=== PATIENT | female | born 1950 | race Caucasian/White ===

== ENCOUNTER → 2017-11-01 09:29 | Outpatient (CLI) | payer MEDICARE, OTHER, SELFPAY | PROVIDERS: PCP Emergency Medicine; Visit Provider Orthopaedic Surgery | DX: M76.31 Iliotibial band syndrome, right leg (principal); M70.61 Trochanteric bursitis, right hip | CPT/HCPCS: 20610; 99213; J1040 ==

== ENCOUNTER 2018-06-13 01:33 | Outpatient (CLI) | payer MEDICARE, OTHER, SELFPAY ==
--- NOTE | 2018-06-13 10:20 | DI.MRI_ITS ---
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 T 2 sagittal, T 1 sagittal, T 1 STIR sagittal, T 1 axial, T 2 axial and T 2 axial MSMA pulse sequences were performed. The bony signal is intact. At L 1 - 2 there is no evidence of a disc herniation. Mild facet joint degenerative changes are noted and there is no evidence of spinal stenosis. At L 2 - 3 there is a small disc bulge and no evidence of a winter herniation. There are mild to moderate facet joint degenerative changes and no evidence of spinal stenosis. At L 3 - 4 a disc bulge is identified. There are moderately severe facet joint degenerative changes and no evidence of significant spinal stenosis. At L 4 - 5 a subligamentous disc protrusion is identified. There is severe facet joint DJD and resultant central spinal canal stenosis and moderate bilateral foraminal stenosis. At L 5 - S 1 a small disc bulge is demonstrated. There are facet joint degenerative changes most severe on the left side where moderate foraminal stenosis is apparent. There is no intrinsic abnormality involving the lower dorsal cord, conus or filum terminale. SUMMARY: Findings consistent with degenerative disc disease and DJD and spinal stenosis, findings most marked at L 4 - 5. Please see the above discussion.
== END 2018-06-13 01:53 ==
PROVIDERS: PCP Emergency Medicine; Visit Provider Emergency Medicine
DX: M54.32 Sciatica, left side (principal); M53.87 Other specified dorsopathies, lumbosacral region; M48.07 Spinal stenosis, lumbosacral region; M51.17 Intervertebral disc disorders with radiculopathy, lumbosacral region
CPT/HCPCS: 72148

== ENCOUNTER 2018-08-17 12:00 | Outpatient (CLI) | payer MEDICARE, OTHER, SELFPAY ==
--- NOTE | 2018-08-17 06:00 | DI.RAD_ITS ---
SYMPTOM/DIAGNOSIS: LUMBAR RADICULOPATHY, LUMBAR EPIDURAL STEROID INJECTION C-ARM: Fluoroscopy Time: 35.25 seconds Fluoroscopy was utilized by Dr. Finney during the performance of a lumbar epidural steroid injection. Please refer to the procedure report for complete details.
[2018-08-17 12:08] VITALS: BP 139/84; PULSE 62; RESP 18; TEMP 36.6; O2SAT 100
[2018-08-17] MEDS: methylPREDNISolone ACETATE 40 MG/ML VIAL IJ (12:35)
[2018-08-17] MEDS: Omnipaque 240 MG/ML 50 ML BTL IJ (12:35)
--- NOTE | 2018-08-17 12:37 | PDOC.PAIN ---
Pain Clinic Procedure Note Current Active Problems Problem Status Onset Lumbosacral radiculitis Acute Lumbar Epidural Steroid Injection Procedure Note COMMENTS: I did review her note from Ms. Hines in our clinic and the most recent lumbar spine MRI. ISAIAH ARZATE has been referred to the [facility] for lumbar epidural steroid injection. The patient was greeted by the nurse who verified patients name and . Patient was then taken to the fluoroscopy suite. The patient was interviewed and the medial record reviewed. There were no medical, pharmacologic, radiographic, or other structural contraindications to attempting fluoroscopically guided lumbar epidural steroid injection. Risks and expected side effects as well as potential benefits of the procedure were reviewed and voiced concerns expressed. The patient consent form was signed and witnessed. Standard patient time-out procedure was performed. The patient was placed in the prone position on the fluoroscopy table and automated blood pressure cuff and pulse oximeter applied. The skin entry point for entering/approaching the epidural space at the right side of the L4-L5 interspace and marked. Following thorough chlorhexadine preparation of the skin and draping and 1% lidocaine infiltration of the skin entry point and subcutaneous tissues, a 18 gauge Touhy needle was placed under fluoroscopic guidance and with loss of resistance technique into the epidural space. Needle tip placement and depth were aided and confirmed by fluoroscopy. There was no paresthesia or return of blood or CSF through the needle. 1 cc's of Omnipaque 240 was injected with clear epidural spread confirmed with fluoroscopy. 80mg depomedrol was injected. There was not any unusual discomfort expressed by ISAIAH ARZATE. Patient's vital signs were stable throughout the procedure and were as recorded in nursing records. Follow up plans and appointments were discussed with patient. Post procedure instruction was given as documented in nursing records and having met discharge criteria and was discharged from the [facility]. COMMENTS: If this procedure is helpful, it can be completed up to 3 times per 12 months.
[2018-08-17 12:39] VITALS: BP 154/99; PULSE 70; RESP 16; O2SAT 100
== END 2018-08-17 12:20 ==
PROVIDERS: PCP Emergency Medicine; Visit Provider Preventive Medicine Occupational Medicine
DX: M54.17 Radiculopathy, lumbosacral region (principal)
CPT/HCPCS: 62323; 72100; J1030; Q9967

== ENCOUNTER 2019-01-16 11:32 | Outpatient (CLI) | payer MEDICARE, OTHER, SELFPAY ==
--- NOTE | 2019-01-16 06:00 | DI.RAD_ITS ---
EXAM: XR PAIN CLINIC LUMBAR SP 2V CLINICAL HISTORY: Dx: Lumbar Radiculopathy. TECHNIQUE: Fluoroscopy was provided for the referring physician for guidance with performing injecti on procedure. COMPARISON: No exams were available for comparison FINDINGS: Please see procedure note for details.
--- NOTE | 2019-01-16 11:01 | PDOC.PAIN_ITS ---
Pain Clinic Procedure Note Procedure Note Procedure Note: LUMBAR INTERLAMINAR EPIDURAL STERIOID INJECTION PROCEDURE NOTE Pre-operative diagnosis: lumbosacral radiculopathy Post-operative diagnosis: same GEORGE ARZATE has been referred to the [facility] for a lumbar epidural steroid injection by Kathe Hines APRN in our pain clinic. patient responded well to previous LESI in 08/[address] Finney. She has significant pain relief from August till late December,. The patient complains of low back pain with pain radiating down the bilateral legs, right more than left. GEORGE was greeted by the nurse who verified patients name and . The patient was then taken to the fluoroscopy suite. GEORGE was interviewed and the medical record reviewed. There were no medical, pharmacologic, radiographic, or other structural contraindications to attempting fluoroscopically guided lumbar epidural steroid injection. Risks and potential side effects, as well as potential benefits of the procedure were reviewed with Ms George Arzate. Her voiced concerns were addressed. After I was assured that informed consent was obtained, the patient consent form was signed. Standard time-out procedure was performed. GEORGE was placed in the prone position on the fluoroscopy table and automated blood pressure cuff and pulse oximeter applied. The skin entry point for entering/approaching the L5-1 epidural space for the lumbar epidural steroid injection was marked. Following thorough chlorhexadine preparation of the skin and draping and 1% lidocaine infiltration of the skin entry point and subcutaneous tissues, an 18 gauge Touhy needle was placed and advanced under f luoroscopic guidance and with loss of resistance technique into the L5-S1 epidural space. Needle tip placement and depth were aided and confirmed by fluoroscopy. There was no paresthesia or return of blood or CSF through the needle. 1 cc's of Omnipaque 240 was injected (49 cc's was wasted) with clear epidural spread confirmed with fluoroscopy. 80 mg of Depomedrol (80 mg/cc) was injected (none was wasted). This was followed by 0.5cc of preservative free 1% lidocaine and 1 cc of preservative-free normal saline to flush the steroid out of the needle. There was not any unusual discomfort expressed by GEORGE. GEORGE's vital signs were stable throughout the procedure and were as recorded in nursing records. Follow up plans and appointments were discussed with GEORGE . The patient is set to follow up with Kathe Bloom on prn basis. Post procedure instruction was given as documented in nursing records and having met discharge criteria he was discharged from the [facility]. Comments: If this procedure is successful in helping with pain and improving her function, it can be completed a maximum of 3 times every 12 months. I personally performed this entire procedure. Elias Hardin MD ABPN-subspecialty board certification in Pain Medicine Attending Physician - Pain Management
[2019-01-16 11:40] VITALS: BP 146/85; PULSE 73; RESP 16; TEMP 36.1; O2SAT 100
[2019-01-16 13:08] VITALS: BP 148/91; PULSE 70; RESP 14; O2SAT 100
[2019-01-16] MEDS: Omnipaque 240 MG/ML 50 ML BTL IJ (13:09)
[2019-01-16] MEDS: methylPREDNISolone ACETATE 80 MG/ML VIAL IM (13:10)
== END 2019-01-16 11:52 ==
PROVIDERS: PCP Emergency Medicine; Visit Provider Internal Medicine
DX: M54.17 Radiculopathy, lumbosacral region (principal)
CPT/HCPCS: 62323; 72100; J1040; Q9967

== ENCOUNTER 2019-01-17 10:48 | Outpatient (CLI) | payer MEDICARE, OTHER, SELFPAY ==
--- NOTE | 2019-01-17 10:16 | DI.RAD_ITS ---
EXAM: XR KNEE LT 3V AP,LAT,MARCIE CLINICAL HISTORY: knee pain TECHNIQUE: The study was performed according to the usual protocol. COMPARISON: LEFT KNEE 3 VIEW COMPLETE from 10/29/2013 FINDINGS: Four views were obtained. There is mild narrowing of the medial tibiofemoral cartilaginous joint spa ce with slight associated periarticular osteophyte formation. There is slight marginal osteophyte fo rmation also seen at the medial patellofemoral joint with slight narrowing of the medial patellofemor al cartilaginous joint space. There is chondrocalcinosis of the knee. No other focal abnormality se en. IMPRESSION: Degenerative changes predominately involving medial tibiofemoral joint and medial patellofemoral.
== END 2019-01-17 11:08 ==
PROVIDERS: PCP Emergency Medicine; Visit Provider Student in an Organized Health Care Education/Training Program
DX: M25.562 Pain in left knee (principal); M17.12 Unilateral primary osteoarthritis, left knee; M70.52 Other bursitis of knee, left knee
CPT/HCPCS: 73562; 99203; 99214

== ENCOUNTER 2019-07-26 07:54 | Outpatient (CLI) | payer MEDICARE, OTHER, SELFPAY ==
--- NOTE | 2019-07-26 06:00 | DI.RAD_ITS ---
EXAM: XR PAIN CLINIC LUMBAR SP 2V CLINICAL HISTORY: Dx:Lumbar Radiculopathy, epidural steroid injection TECHNIQUE: 2D and realtime digital imaging was performed. Fluoroscopy was provided in the OR COMPARISON: No exams were available for comparison FINDINGS: C-arm fluoroscopy was utilized by Dr. Finney during apparent epidural injection. Hard copy shows injec tion at the L4 level in the posterior midline. Please see Dr. Finney's procedure note. Fluoro time 20.3 seconds. RADIATION DOSE DELIVERED: Total DLP
[2019-07-26 08:01] VITALS: BP 134/86; PULSE 73; RESP 16; TEMP 36.7; O2SAT 97
--- NOTE | 2019-07-26 08:43 | PDOC.PAIN ---
Pain Clinic Procedure Note Procedure Note Procedure Note: Lumbar Epidural Steroid Injection Procedure Note COMMENTS: She has done exceedingly well with the first 2 lumbar epidural steroid injections over the past 11 months DX: Lumbosacral radiculopathy ISAIAH ARZATE has been referred to the [facility] for lumbar epidural steroid injection. The patient was greeted by the nurse who verified patients name and . Patient was then taken to the fluoroscopy suite. The patient was interviewed and the medial record reviewed. There were no medical, pharmacologic, radiographic, or other structural contraindications to attempting fluoroscopically guided lumbar epidural steroid injection. Risks and expected side effects as well as potential benefits of the procedure were reviewed and voiced concerns expressed. The patient consent form was signed and witnessed. Standard patient time-out procedure was performed. The patient was placed in the prone position on the fluoroscopy table and automated blood pressure cuff and pulse oximeter applied. The skin entry point for entering/approaching the epidural space at L4-L5 and marked. Following thorough chlorhexadine preparation of the skin and draping and 1% lidocaine infiltration of the skin entry point and subcutaneous tissues, a 18 gauge Touhy needle was placed under fluoroscopic guidance and with loss of resistance technique into the epidural space. Needle tip placement and depth were aided and confirmed by fluoroscopy. There was no paresthesia or return of blood or CSF through the needle. 1 cc's of Omnipaque 240 was injected with clear epidural spread confirmed with fluoroscopy. 80mg depomedrol was injected. There was not any unusual discomfort expressed by ISAIAH ARZATE. Patient's vital signs were stable throughout the procedure and were as recorded in nursing records. Follow up plans and appointments were discussed with patient. Post procedure instruction was given as documented in nursing records and having met discharge criteria and was discharged from the [facility]. COMMENTS: If this procedure is helpful, it can be completed up to 3 times per 12 months.
[2019-07-26 08:45] VITALS: BP 130/83; PULSE 69; RESP 14; O2SAT 100
[2019-07-26] MEDS: Omnipaque 240 MG/ML 50 ML BTL IJ (08:55)
[2019-07-26] MEDS: methylPREDNISolone ACETATE 40 MG/ML VIAL IJ (08:55)
== END 2019-07-26 08:14 ==
PROVIDERS: PCP Emergency Medicine; Visit Provider Preventive Medicine Occupational Medicine
DX: M54.17 Radiculopathy, lumbosacral region (principal)
CPT/HCPCS: 62323; 72100; J1030; Q9967

== ENCOUNTER → 2019-08-15 09:11 | Outpatient (BNVA) | payer MEDICARE, OTHER, SELFPAY | PROVIDERS: PCP Emergency Medicine; Referring Provider Emergency Medicine; Visit Provider Student in an Organized Health Care Education/Training Program | DX: M25.562 Pain in left knee (principal); M23.92 Unspecified internal derangement of left knee; X50.1XXA Overexertion from prolonged static or awkward postures, initial encounter | CPT/HCPCS: 99214 ==

== ENCOUNTER 2019-08-22 01:01 | Outpatient (CLI) | payer MEDICARE, OTHER, SELFPAY ==
--- NOTE | 2019-08-22 07:00 | DI.MRI_ITS ---
EXAM: MR LOWER JOINT LT WO CLINICAL HISTORY: Concern for acute lateral meniscus injury,INTERNAL DERANGEMENT, LT KNEE. TECHNIQUE: Multiplanar multisequence MRI was performed. COMPARISON: CR XR KNEE LT 3V AP,LAT,MARCIE from 01/17/2019 FINDINGS: BONES: There is mild marrow edema seen in the lateral aspect of the lateral femoral condyle. No evid ence of an occult fracture or avascular necrosis. JOINTS: There is mild thinning of the articular cartilage over the patella. Mild subchondral edema i s seen. Articular cartilage is otherwise well maintained. No effusion is present. TENDONS: Extensor mechanism: Unremarkable. Medial retinaculum: Unremarkable. Lateral retinaculum: Unremarkable. Popliteus: There is thickening of the popliteus tendon near its insertion site at the lateral femoral condyle. There is fluid surrounding the tendon distally. The findings for suspicious for tear. Th ere may be a full-thickness tear with some retraction of the tendon noted. MUSCLES: There is edema seen in the popliteus muscle. There is mild edema seen in muscles of the ant erior lateral lower leg. MENISCI: There is a tear in the body and posterior horn of the medial meniscus. The lateral meniscus is unremarkable. SOFT TISSUES: Please see above. LIGAMENTS: Anterior Cruciate: The anterior cruciate ligament appears small but intact. Posterior Cruciate: Unremarkable. Medial Collateral:Unremarkable. Lateral Collateral: Unremarkable. OTHER: There is hyperintense signal around the ligaments in the posterolateral corner suggesting a sp rain. The popliteal fibular ligament is not visualized suggesting a tear. IMPRESSION: 1. Tear of the body and posterior horn of the medial meniscus. 2. Findings suspicious for tear of the popliteus tendon. A full-thickness tear with retraction is timmons ggested. 3. Findings of a sprain of the posterior lateral ligaments. 4. Lateral meniscus appears intact. 5. Marrow edema in the lateral aspect of the lateral femoral condyle without evidence of an fracture. DATA REPOSITORY:
== END 2019-08-22 01:21 ==
PROVIDERS: PCP Emergency Medicine; Visit Provider Student in an Organized Health Care Education/Training Program
DX: M25.562 Pain in left knee (principal); M23.92 Unspecified internal derangement of left knee; S83.242A Other tear of medial meniscus, current injury, left knee, initial encounter; M67.862 Other specified disorders of synovium, left knee
CPT/HCPCS: 73721

== ENCOUNTER → 2019-08-29 08:58 | Outpatient (BNVA) | payer MEDICARE, OTHER, SELFPAY | PROVIDERS: PCP Emergency Medicine; Referring Provider Emergency Medicine; Visit Provider Student in an Organized Health Care Education/Training Program | DX: S83.232A Complex tear of medial meniscus, current injury, left knee, initial encounter (principal); S89.92XA Unspecified injury of left lower leg, initial encounter; X58.XXXA Exposure to other specified factors, initial encounter | CPT/HCPCS: 99214 ==

== ENCOUNTER 2019-11-08 11:09 | Outpatient (CLI) | payer MEDICARE, OTHER, SELFPAY ==
[2019-11-08 11:29] VITALS: BP 141/92; PULSE 71; RESP 16; TEMP 37; O2SAT 99
--- NOTE | 2019-11-08 11:52 | DI.RAD_ITS ---
EXAM: XR PAIN CLINIC LUMBAR SP 2V CLINICAL HISTORY: Dx:Lumbar Radiculopathy TECHNIQUE: 2D and realtime digital imaging was performed. Fluoroscopy was provided in the OR COMPARISON: No exams were available for comparison FINDINGS: C-arm fluoroscopy was utilized by Dr. Finney during reported lumbar epidural steroid injection. Hard c opy shows midline injection in the epidural space at what appears to be L4-5 level. Fluoro time, 15 seconds. IMPRESSION: RADIATION DOSE DELIVERED: Total DLP
[2019-11-08 11:53] VITALS: BP 162/98; PULSE 70; RESP 17; O2SAT 100
[2019-11-08] MEDS: Omnipaque 240 MG/ML 50 ML BTL IJ (11:55)
[2019-11-08] MEDS: methylPREDNISolone ACETATE 80 MG/ML VIAL IJ (11:56)
--- NOTE | 2019-11-08 11:58 | PDOC.PAIN ---
Pain Clinic Procedure Note Procedure Note Procedure Note: Lumbar Epidural Steroid Injection Procedure Note COMMENTS:She has done exceedingly well with her past LESIs. Her last one was on 07/26/19 and she has had 2 over the past 12 months. DX: Lumbosacral radiculopathy ISAIAH ARZATE has been referred to the [facility] for lumbar epidural steroid injection. The patient was greeted by the nurse who verified patients name and . Patient was then taken to the fluoroscopy suite. The patient was interviewed and the medial record reviewed. There were no medical, pharmacologic, radiographic, or other structural contraindications to attempting fluoroscopically guided lumbar epidural steroid injection. Risks and expected side effects as well as potential benefits of the procedure were reviewed and voiced concerns expressed. The patient consent form was signed and witnessed. Standard patient time-out procedure was performed. The patient was placed in the prone position on the fluoroscopy table and automated blood pressure cuff and pulse oximeter applied. The skin entry point for entering/approaching the epidural space at L4-L5 and marked. Following thorough chlorhexadine preparation of the skin and draping and 1% lidocaine infiltration of the skin entry point and subcutaneous tissues, a 18 gauge Touhy needle was placed under fluoroscopic guidance and with loss of resistance technique into the epidural space. Needle tip placement and depth were aided and confirmed by fluoroscopy. There was no paresthesia or return of blood or CSF through the needle. 1 cc's of Omnipaque 240 was injected with clear epidural spread confirmed with fluoroscopy. 80mg depomedrol was injected. There was not any unusual discomfort expressed by ISAIAH ARZATE. Patient's vital signs were stable throughout the procedure and were as recorded in nursing records. Follow up plans and appointments were discussed with patient. Post procedure instruction was given as documented in nursing records and having met discharge criteria and was discharged from the [facility]. COMMENTS: If this procedure is helpful, it can be completed up to 3 times per 12 months.
== END 2019-11-08 11:29 ==
PROVIDERS: PCP Emergency Medicine; Visit Provider Preventive Medicine Occupational Medicine
DX: M54.17 Radiculopathy, lumbosacral region (principal)
CPT/HCPCS: 62323; 72100; J1040; Q9967

== ENCOUNTER 2020-01-04 13:36 | Outpatient (REF) | payer MEDICARE, OTHER, SELFPAY ==
[2020-01-04 21:34] LABS: Calculated LDL 96 mg/dL (<100); Cholesterol 250 mg/dL (<200); HDL Cholesterol 144 mg/dL (40-60); Triglyceride 51 mg/dL (<150)
== END 2020-01-04 13:56 ==
LOC: LBN 13:36
PROVIDERS: PCP Emergency Medicine; Visit Provider Emergency Medicine
DX: I10 Essential (primary) hypertension (principal)
CPT/HCPCS: 80061

== ENCOUNTER 2020-02-06 10:19 | Outpatient (CLI) | payer MEDICARE, OTHER, SELFPAY ==
--- NOTE | 2020-02-06 09:30 | DI.RAD_ITS ---
EXAM: XR SHOULDER RT COMPLETE 2+V CLINICAL HISTORY: right shoulder pain TECHNIQUE: COMPARISON: No exams were available for comparison FINDINGS: Two views were obtained. There are very prominent hypertrophic changes of the acromioclavicular join t particularly on its superior aspect. There may be slight narrowing of the cartilaginous joint spac e of the glenohumeral joint. There are marginal osteophytes of the glenoid and humeral head particul padmini inferiorly. No other significant bony abnormality seen. There is minimal soft tissue calcification projected superior to the humeral head, nonspecific. IMPRESSION: Degenerative changes as described above involving glenohumeral and acromioclavicular joints RADIATION DOSE DELIVERED: Total DLP
== END 2020-02-06 10:39 ==
PROVIDERS: PCP Emergency Medicine; Referring Provider Emergency Medicine; Visit Provider Student in an Organized Health Care Education/Training Program
DX: M19.011 Primary osteoarthritis, right shoulder (principal); M75.21 Bicipital tendinitis, right shoulder; M75.101 Unspecified rotator cuff tear or rupture of right shoulder, not specified as traumatic; M75.51 Bursitis of right shoulder; M75.31 Calcific tendinitis of right shoulder
CPT/HCPCS: 99214; 73030

== ENCOUNTER 2020-02-20 01:20 | Outpatient (CLI) | payer MEDICARE, OTHER, SELFPAY ==
--- NOTE | 2020-02-20 07:00 | DI.MRI_ITS ---
EXAM: MR UPPER JOINT RT WO CLINICAL HISTORY: Failure conservative management,SHOULDER PAIN,RT ROTATOR CUFF TEAR,BURSITIS TECHNIQUE: Multiplanar multisequence MRI of the shoulder was performed. COMPARISON: CR XR SHOULDER RT COMPLETE 2+V from 02/06/2020 CR XR SHOULDER RT COMPLETE 2+V from 02/06/2020 FINDINGS: MARROW:There is no evidence of fracture, Hill-Sachs deformity, nor ominous osseous lesions. ROTATOR CUFF MECHANISM: AC JOINT/ACROMIUM: There are significant degenerative changes in the acromioclavicular joint causing an element of impingement upon the supraspinatus. There is no evidence of os acromiale. subacromial/subdeltoid bursa: Contains fluid. Supraspinatus: Some increased signal consistent with tendinitis. Small focus of articular side parti al tearing. No obvious full-thickness tear. No atrophy. Infraspinatus: Intact. No evidence of tear nor muscle atrophy. Teres Minor: Intact. No evidence of tear nor muscle atrophy. Subscapularis/anterior cuff: Some tendinitis signal. No high-grade tear. GLENOHUMERAL JOINT: Moderate-sized joint effusion with some synovial thickening noted. Hyaline carti elis thinning. Degenerative osteophyte on the inferior articular surface of the humeral head. No de generative subarticular cysts in the osseous glenoid and humeral head. No evidence of capsular tear. The inferior glenohumeral ligament is intact. BICEPS TENDON: Normally position in the intertubercular groove. No evidence of tear. No tenosynovitis. LABRUM: There is abnormal signal in the superior labrum posterior to the biceps insertion. This cont inues into the posterior labrum which also exhibits some fluid signal interposed between the osseous glenoid and posterior labrum. There is no obvious inferior labral tear. No evidence of paralabral c yst. QUADRILATERAL SPACE: No evidence of mass in the region of the axillary nerve and dorsal circumflex hu meral vessels. Visualized triceps muscle at this level appears unremarkable. IMPRESSION: 1. There is some signal abnormality in the supraspinatus as well as in the anterior cuff-subscapulari s as described above consistent with tendinitis/tendinosis but no full-thickness tears of these struc tures evident to explain the fluid in the overlying subacromial-subdeltoid bursa which is therefore i s most probably related to bursitis in this patient with significant degenerative changes in the acro mioclavicular joint. 2. Moderate osteoarthritic degenerative changes in the glenohumeral joint are noted including a ridley -type osteophyte on the inferior articular surface of the humeral head. 3. There is evidence of tear in the superior and posterior labrum. No evidence of paralabral cyst. 4. No tear of the long head biceps tendon evident. DATA REPOSITORY:
== END 2020-02-20 01:40 ==
PROVIDERS: PCP Emergency Medicine; Visit Provider Student in an Organized Health Care Education/Training Program
DX: M19.011 Primary osteoarthritis, right shoulder (principal); M25.711 Osteophyte, right shoulder; S43.431A Superior glenoid labrum lesion of right shoulder, initial encounter; M75.51 Bursitis of right shoulder
CPT/HCPCS: 73221

== ENCOUNTER → 2020-03-05 13:53 | Outpatient (BNVA) | payer MEDICARE, OTHER, SELFPAY | PROVIDERS: PCP Emergency Medicine; Referring Provider Emergency Medicine; Visit Provider Student in an Organized Health Care Education/Training Program | DX: M75.21 Bicipital tendinitis, right shoulder (principal); M24.119 Other articular cartilage disorders, unspecified shoulder; M75.51 Bursitis of right shoulder; I10 Essential (primary) hypertension | CPT/HCPCS: 20610; 99214; J1030 ==

== ENCOUNTER → 2020-04-23 13:39 | Outpatient (BNVA) | payer MEDICARE, OTHER, SELFPAY | PROVIDERS: PCP Emergency Medicine; Referring Provider Emergency Medicine; Visit Provider Student in an Organized Health Care Education/Training Program | DX: M75.21 Bicipital tendinitis, right shoulder (principal); M24.119 Other articular cartilage disorders, unspecified shoulder; M75.51 Bursitis of right shoulder | CPT/HCPCS: 99214 ==

== ENCOUNTER 2020-06-17 02:49 | Outpatient (CLI) | payer MEDICARE, OTHER, SELFPAY ==
[2020-06-17 11:59] LABS: Source Nasal/Nares
[2020-06-17 15:51] LABS: COVID-19 PCR Negative (Negative)
== END 2020-06-17 02:50 | disposition home or self-care (01) ==
PROVIDERS: PCP Emergency Medicine; Visit Provider Student in an Organized Health Care Education/Training Program
DX: Z20.822 Contact with and (suspected) exposure to COVID-19 (principal); Z01.818 Encounter for other preprocedural examination
CPT/HCPCS: 87635; U0003

== ENCOUNTER 2020-06-20 06:00 | Day surgery (SDC) | payer MEDICARE, OTHER, SELFPAY ==
[2020-06-20] VITALS (9 sets, daily range): BP systolic 117–133; BP diastolic 68–97; PULSE 66–82; RESP 11–18; TEMP 36.7–37; O2SAT 93–98
[2020-06-20] MEDS: Lactated Ringers 1,000 ML 100 ML IV (06:47)
[2020-06-20] MEDS: ceFAZolin 2 GM/50 ML BAG IVPB (07:40)
[2020-06-20] MEDS: EPINEPHrine 30 MG/30 ML VIAL (08:37)
--- NOTE | 2020-06-20 10:24 | W.PM.DSUDISC ---
Discharge Plan Disposition Patient Disposition: HOME Condition: Stable Discharge Details Reason For Visit: Right shoulder surgery Attending Provider: Lisandro Lozoya Primary Care Provider: Abram Malik Home Meds and New Rx's Prescriptions: New aspirin 81 mg tablet,delayed release (DR/EC) 81 mg PO DAILY 14 Days Qty: 14 RF: 0 naproxen 250 mg tablet 250 - 500 mg PO BID PRN (Reason: Moderate pain or swelling) Qty: 60 RF: 0 tramadol 50 mg Tablet 50 mg PO Q8H PRN PRN (Reason: severe pain) Qty: 12 RF: 0 Continued famotidine [[employer] (famotidine)] 20 mg tablet 20 mg PO DAILY RF: 0 magnesium 30 mg tablet 30 mg PO DAILY RF: 0 vitamin B complex 1 EACH capsule 1 ea PO DAILY RF: 0 cholecalciferol (vitamin D3) 1,000 UNIT tablet 1,000 unit PO DAILY Qty: 1 RF: 0 lorazepam 1 mg tablet 1 mg PO QHS PRN (Reason: sleep) Qty: 90 RF: 1 acetaminophen 500 mg Tablet 500 mg PO Q4H PRNRF: 0 Discontinued ibuprofen 600 MG tablet 600 mg PO TID PRNRF: 0 Discharge Instructions Additional Instructions: Surgery: Shoulder arthroscopy with extensive debridement, subacromial decompression, and open biceps tenodesis ACtivity: You should gradually increase range of motion motion and use of your shoulder. Please perform daily stretching exercises. You may use your shoulder for all regular activities. Avoid heavy lifting, reaching overhead, and lifting away from body for approximately 6 to 8 weeks. You may use the sling whenever you are out of the house for a few weeks. At home it is best to remove the sling and rest the arm on a pillow at your side or support the operative side with your other hand. A physical therapy prescription will be sent electronically to start in about 2 weeks. Prescriptions: Aspirin 81 mg take 1 daily to prevent a blood clot for 2 weeks Naproxen 250 mg take 1-2 every 12 hours with a meal as needed for moderate pain Tramadol 50 mg take 1 every 8 hours as needed for severe pain You may use [id number] Tylenol (acetaminophen) as needed for mild pain. These pain medications may be taken all at once or in different combinations as needed. Also, recommend Colace (docusate) as a stool softener as surgery and pain medicine cause constipation. Dressings: Remove shoulder bandage after 3 days. Leave the sticky Steri-Strips in place until they fall off or remove them after you shower. Cover the incisions with Band-Aids or leave them open to air. The biceps bandage (inside upper arm) is glued on separately. You may leave this one on a few days longer if it is difficult to remove. There is also glue underneath this bandage that can be left in place until it peels off. You may shower after 5 days. Follow-up: 10-[address] Lozoya You may take off the leg compression stockings this evening at home. You may also leave them on a few days longer if you have a history of leg swelling or edema. Let us know right away if you develop any redness, drainage, fevers, chest pain, or trouble breathing. Do not drink alcohol or drive for at least 24 hours after anesthesia. Please call the office during business hours with any questions or concerns. Stand Alone Forms: Anesthesia Discharge Inst., Pretty[employer].Nerve Block Instructions, Suellen Keating ([facility]U) Referrals: Lisandro Lozoya MD [ [facility] STAFF PHYSICIAN] - Discharge Orders Discharge Orders: Discharge Order (Routine); Ordered 06/20/20 Ordered By: Lisandro Lozoya DS: Diagnosis Discharge Diagnosis (1) Arthritis of right acromioclavicular joint: Status: Acute (2) Labral tear of shoulder, degenerative: Status: Acute (3) Bursitis of right shoulder: Status: Acute (4) Tendonitis of long head of biceps brachii of right shoulder: Status: Acute
--- NOTE | 2020-06-20 12:00 | ROE_ITS ---
Date of service: 06/20/20 Time of Service: 10:25 Operative Note Operative Note DATE OF PROCEDURE: 06/20/20 PRE-OP DIAGNOSIS: Right shoulder: 1. Calcific tendinitis 2. LHB tendinopathy 3. Bursitis 4. Chondromalacia POST-OP DIAGNOSIS: other Right shoulder: 1. Calcific tendinitis 2. SLAP tear 3. LHB tendinopathy 4. Bursitis 5. Chondromalacia PROCEDURE: Right: 1. Open biceps tenodesis, CPT# 81502. This involved reattaching the long head of the biceps tendon to the proximal humerus in the sub-pectoral area of the bicipital groove at the correct tension. 2. Extensive debridement, CPT# 88211. This involved using arthroscopic hand instruments, power instruments, and radiofrequency instruments to release to release the long head of the biceps tendon and debride areas of labral tearing, SLAP tear, synovitis within the glenohumeral joint anteriorly, superiorly and posteriorly. An anterior capsular release of the MGHL was also performed to improve external rotation. Inferior humeral head goats ridley type osteophyte was also resected. Loose cartilage flaps were debrided from the central glenoid as well as from central, superior, anterior, and posterior humeral head. Partial articular sided supraspinatus tearing about multiple small calcific depositions was debrided and calcium deposits were removed. 4. Subacromial decompression with acromioplasty, CPT# 75016. This involved using arthroscopic power instruments and a radiofrequency wand to complete a bursectomy, remove minimal bone spurring on the undersurface of acromion, coplane the distal clavicle acromion joint, and remove bursal calcific deposits. The learning and development assistant was medically required in order to help assist in techniques above, which require positioning the arm, holding the arthroscope, and manipulating multiple instruments and sutures at the same time. This cannot be done without the help of an experienced learning and development assistant. SURGEON: Lisandro Lozoya TECHNICAL CLERK: Rocio Gonzalez ANESTHESIA TYPE: Local By Surgeon, General LMA/ETT and Primary Nerve Block Refer to Anesthesia Record ESTIMATED BLOOD LOSS: 15 PATHOLOGY: none sent COMPLICATIONS: None Patient was transported to: PACU Patient's condition: stable Implants: Arthrex: Unicortical Proximal Biceps Tenodesis Button Indications: The patient was diagnosed with the above conditions and appropriately indicated for surgical intervention. Please see complete medical record for details. Findings: Exam under anesthesia: No obvious mechanical symptoms about the glenohumeral joint or AC joint. Swollen long head of the biceps tendon. Mild stiffness into forward elevation about 135 degrees, moderate stiffness in external rotation especially at the side about 40 degrees, minimal limitation in internal rotation. Glenohumeral joint: Significant synovitis anteriorly superiorly and posteriorly. Also about the axillary recess. Moderate degenerative changes chondromalacia including loose chondral flaps and central thinning of the glenoid in multiple aspects of the humeral head. Intact subscapularis. Significant degenerative labral fraying anteriorly and displaced involving biceps anchor SLAP type tear. Moderate long of the biceps injection. Anterior and central supraspinatus partial articular sided tearing about 25% footprint about multiple small calcific depositions. Intact infraspinatus. Moderate inferior humeral head goats ridley tight osteophyte. Subacromial space: Moderate bursitis. Multiple small calcific depositions overlying the bursal supraspinatus and about the distal clavicle acromion joint. Minimal undersurface acromial bone spur. Prominent undersurface distal clavicle acromial joint. Intact bursal rotator cuff. Procedure Description: In the operating room, general anesthesia was induced. Bilateral shoulders were examined. The patient was positioned in the beachchair position. All bony prominences were well-padded. Preoperative antibiotics were administered. The shoulder was prepped and draped in the usual sterile fashion. The correct patient, procedure, and side of the procedure were all verified prior to incision. Starting through the posterior portal a standard complete diagnostic arthroscopy was performed of the glenohumeral joint including inspection of the long head of the biceps, anterior and superior labrum, subscapularis tendon, supraspinatus and infraspinatus tendons, and axillary recess. The glenoid and humeral head cartilage as well as the posterior labrum were inspected from an anterior viewing portal. Significant findings and interventions noted above. The biceps tendon was released from the superior labrum using arthroscopic scissors. Starting through the posterior portal, the arthroscope was directed into the subacromial space. A lateral 50 yard line lateral portal was created. A combination of power instruments and a radiofrequency ablator were used to debride bursitis anteriorly, posteriorly, and laterally as well as expose and smooth bone spurring on the undersurface of the acromion. The coracoacromial ligament was preserved. The bursectomy was completed viewing laterally and working from posteriorly and the rotator cuff was thoroughly inspected with findings noted above. 20 cc of 0.5% bupivacaine with epinephrine was infiltrated about a 2 cm longitudinal incision at the inferior margin of the pectoralis major localized over the long head of the biceps tendon. Blunt and sharp dissection were used to expose the tendon in the bicipital groove. The tendon was brought out of the wound and kept off the skin on top of a blue towel. The correct location for sub-pectoral fixation was localized, prepped with a rasp, and then drilled with a 3.2 mm drill pin in a unicortical fashion. Using a fiber loop suture the tendon was prepped from the musculotendinous junction a few centimeters proximal. The excess tendon was amputated. The free suture ends were then passed through the unicortical button implant. The drill pin was removed and the implant was placed into the humeral intramedullary canal. The button was flipped and the sutures were tensioned bringing the tendon down to bone. Tension and fixation were then tested and found to be appropriate. The tendon was secured centrally over the anchor location, suture ends brought on either side of it, and the free ends of the suture were were tied compressing tendon to bone. The wound was copiously irrigated with normal saline. Subcutaneous tissue was closed using 3-0 Monocryl in a buried interrupted fashion. Skin was closed using 3-0 Monocryl in a buried subcuticular running fashion. Skin glue was applied over the incision. Mastisol was applied about the incision. The incision was covered with Telfa, gauze, and covered with a Tegaderm dressing. The shoulder was drained of arthroscopic fluid. All portal sites were copiously irrigated. These incisions were closed using 3-0 Monocryl in a buried fashion, covered with Mastisol, Steri-Strips, Xeroform, dry gauze, and ABDs. The dressings were covered and secured with Medipore tape. The operative extremity was placed into a sling for immobilization. The patient awoke from anesthesia without complication and was transferred to the recovery room in a stable condition.
== END 2020-06-20 13:04 | disposition home or self-care (01) ==
PROVIDERS: PCP Emergency Medicine; Visit Provider Student in an Organized Health Care Education/Training Program
PROC: (CPT 29805; principal; 2020-06-20 07:45)
PROC: (CPT 23430; 2020-06-20 07:45)
DX: M19.011 Primary osteoarthritis, right shoulder (principal); M75.21 Bicipital tendinitis, right shoulder; M24.111 Other articular cartilage disorders, right shoulder; M75.51 Bursitis of right shoulder; M94.211 Chondromalacia, right shoulder
CPT/HCPCS: 23430; 29823; 29826; 76942; J0690; J1100; J1885; J2001; J2250; J2370; J2405; J2704

== ENCOUNTER → 2020-07-02 12:56 | Outpatient (BNVA) | payer MEDICARE, OTHER, SELFPAY | PROVIDERS: PCP Emergency Medicine; Referring Provider Emergency Medicine; Visit Provider Student in an Organized Health Care Education/Training Program | DX: Z47.89 Encounter for other orthopedic aftercare (principal); M75.21 Bicipital tendinitis, right shoulder; M24.111 Other articular cartilage disorders, right shoulder; M75.51 Bursitis of right shoulder; M19.011 Primary osteoarthritis, right shoulder ==

== ENCOUNTER → 2020-12-16 13:03 | Outpatient (BNVA) | payer MEDICARE, SELFPAY | PROVIDERS: PCP Emergency Medicine; Referring Provider Emergency Medicine; Visit Provider Student in an Organized Health Care Education/Training Program | DX: M19.011 Primary osteoarthritis, right shoulder (principal); M77.11 Lateral epicondylitis, right elbow; M77.01 Medial epicondylitis, right elbow; M77.02 Medial epicondylitis, left elbow; M75.21 Bicipital tendinitis, right shoulder; M77.8 Other enthesopathies, not elsewhere classified | CPT/HCPCS: 20610; 99214; J1030 ==

== ENCOUNTER 2021-05-08 02:26 | Outpatient (CLI) | payer MEDICARE, SELFPAY ==
--- NOTE | 2021-05-08 06:45 | DI.CT_ITS ---
Exam(s) CT ABDOMEN PELVIS W EXAM: CT ABDOMEN PELVIS W CLINICAL HISTORY: pelvic pain,r10.2. TECHNIQUE: Imaging Protocol: Axial computed tomography images with coronal and sagittal reformatted images were created and reviewed CONTRAST MATERIAL: Intravenous: Omnipaque 100cc Oral: Yes COMPARISON: CT ABD PELVIS WITH CONTRAST from 07/18/2017 FINDINGS: VISUALIZED LUNG BASES: No nodules nor pleural effusions evident. ABDOMEN: There is no ascites. LIVER: There are no focal hepatic lesions evident . GALLBLADDER/BILIARY: No obvious gallbladder pathology. CBD is not dilated. PANCREAS: No evidence of pancreatic mass nor dilatation of the pancreatic duct. SPLEEN: Spleen is not enlarged. No obvious intrasplenic lesions. Splenic and portal veins are paten t. ADRENALS: There are no significant adrenal masses. KIDNEYS:No cysts evident. No solid renal masses. No calculi nor hydronephrosis.. ABDOMINAL AORTA: Abdominal aorta is not enlarged. LYMPH NODES:There is no retroperitoneal nor paraaortic adenopathy. ABDOMINAL WALL: No evidence of significant anterior abdominal wall nor inguinal hernia. GI: There is no evidence of bowel obstruction, free air, nor abscess. PELVIS: GI: Appendix is difficult to locate is a separate structure but there is no evidence of obvious acute appendicitis.There are sigmoid diverticula but no evidence of obvious acute diverticulitis. LYMPH NODES: There is no intrapelvic nor inguinal adenopathy. REPRODUCTIVE: Uterus is surgically absent. There are no abnormal adnexal masses. No free fluid. URINARY BLADDER: No calculi nor obvious masses evident OSSEOUS: No significant osseous lesions. Advanced disc space narrowing at L4-5 level IMPRESSION: 1. Sigmoid diverticulosis without evidence of obvious acute diverticulitis. Also no obvious acute ap pendicitis. 2. No bowel obstruction. No free air. No abscess. 3. Uterus is surgically absent. There are no abnormal adnexal masses nor free fluid in the pelvis. RADIATION DOSE DELIVERED: 713.31mGy.cm Total DLP DATA REPOSITORY: All CT scans at this facility are submitted to the National Radiology Data Registry (NRDR) Dose Index Registry (DIR) with the [employer] (A[employer]). RADIATION OPTIMIZATION: All CT scans at this facility use at least one of these dose optimization te chniques: automated exposure control; mA and/or kV adjustment per patient size (includes targeted exa ms where dose is matched to clinical indication); or iterative reconstruction.
[2021-05-08 09:05] LABS: Anion Gap 6.8 mmol/L (3-11); BUN 19 mg/dL (7-18); CO2 30.2 mmol/L (21.0-32.0); CREATININE 0.6 mg/dL (0.55-1.02); Calcium 9.3 mg/dL (8.5-10.1); Chloride 106 mmol/L (98-107); Glucose 103 mg/dL (74-106); Potassium 4.8 mmol/L (3.5-5.1); Sodium 143 mmol/L (136-145)
[2021-05-08] MEDS: Omnipaque 350 MG/ML 100 ML BTL IJ (10:25)
[2021-05-08] MEDS: Breeza Beverage 473 ML BTL PO (10:26)
== END 2021-05-08 02:46 ==
PROVIDERS: PCP Family Medicine; Visit Provider Emergency Medicine
DX: R10.2 Pelvic and perineal pain (principal); I10 Essential (primary) hypertension; Z90.710 Acquired absence of both cervix and uterus; K57.30 Diverticulosis of large intestine without perforation or abscess without bleeding
CPT/HCPCS: 80048; 74177; J3490

== ENCOUNTER → 2021-05-21 12:51 | Outpatient (BNVA) | payer MEDICARE, SELFPAY | PROVIDERS: PCP Family Medicine; Referring Provider Family Medicine; Visit Provider Physical Therapy Assistant | DX: R10.30 Lower abdominal pain, unspecified (principal); R19.4 Change in bowel habit | CPT/HCPCS: 99214 ==

== ENCOUNTER 2021-05-22 03:27 | Outpatient (CLI) | payer MEDICARE, SELFPAY ==
[2021-05-22 11:57] LABS: Source Nasal/Nares
[2021-05-22 15:39] LABS: COVID-19 PCR Negative (Negative)
== END 2021-05-22 03:28 | disposition home or self-care (01) ==
LOC: LBO 03:28
PROVIDERS: PCP Family Medicine; Visit Provider Surgery
DX: Z01.818 Encounter for other preprocedural examination (principal); Z20.822 Contact with and (suspected) exposure to COVID-19
CPT/HCPCS: 87635; U0005

== ENCOUNTER 2021-05-25 07:39 | Day surgery (SDC) | payer MEDICARE, SELFPAY ==
--- NOTE | 2021-05-25 06:49 | COLE_ITS ---
Colonoscopy Report Date of procedure: 05/25/21 Pre-op diagnosis general: Abdominal pain Post-op diagnosis procedure note: other (polyps and mild sigmoid diverticulosis) Procedure: Colonoscopy with polypectomy Surgeon: Heidy Ventura Anesthesia Type: General:No Airway Estimated blood loss (mL): 3 Pathology: other (cecal polyps x2, sigmoid polyp) Complications: None Disposition: same day Indications: The patient is here for Colonoscopy pre-op. Her last screening was in 2013 and was unremarkable. She has no family history of colon cancer. She has had abdominal pain and changes in her BMs for 3 months. The use of fiber supplements have only improved her symptoms slightly. -Discussed colonoscopy bowel prep as well as the procedure. Discussed possible complications of the procedure to include bleeding, pain, perforation, missed small lesion/polyp, sore throat, aspiration and adverse reaction to the medications. Questions were answered to patient?s satisfaction. No guarantees were implied or given.? Reviewed COVID pre-caution's and pre-procedure testing. Patient is scheduled for COVID test. Instructions of testing location were provided. Patient verbalized understanding. I spent 31 ? minutes in reviewing the record, seeing the patient, providing patient education, answering patient's questions and documenting in the medical record. P// Colonoscopy under sedation. Prep: Miralax/Dulcolax Procedure Start Time: 09:32 Procedure End Time: 09:58 Retraction Time: 9 minutes Findings: 3 small sessile polyps Mild diverticulosis Procedure Description: After informed consent was obtained the patient was taken to the procedure room and placed in a left decubitous position. Monitors were applied and a time out was done. The patients name, date of , procedure, allergies to medications and metal in their body was reviewed. The patient was then sedated. Once sedated and comfortable a rectal exam was done. External exam was normal. Internal exam revealed a normal sphincter tone and no palpable masses. The scope was then introduced and retro-flexed. No internal hemorrhoids, polyps or masses were identified on retro-flexion. The scope was then advanced to the cecum without difficulty. The ileocecal vlave and appendiceal orifice were identified. The prep was adequate. The scope was then slowly retracted over 9 minutes back into the rectum. Polyps were removed with cold forceps in the cecum x2 and sigmoid colon x1. There was mild sigmoid diverticulosis noted. The scope was removed and the patient was woken up and taken back to Same day surgery in stable condition. The patient tolerated the procedure well and there were no immediate compl ications. Follow up: The patient should follow up in 5 years unless they develop changes in bowel habits or other new gastrointestinal complaints.
--- NOTE | 2021-05-25 06:50 | W.PM.DSUDISC ---
Discharge Plan Disposition Patient Disposition: HOME Condition: Good Discharge Details Reason For Visit: Colonoscopy Attending Provider: Heidy Ventura Primary Care Provider: Alyssa Javed Home Meds and New Rx's Prescriptions: Continued zinc 50 mg tablet 50 mg PO DAILY 0RF magnesium 30 mg tablet 30 mg PO DAILY 0RF calcium polycarbophil 625 mg tablet 1,250 mg PO DAILY 0RF famotidine 10 mg tablet 10 mg PO DAILY 0RF vitamin B complex 1 EACH capsule 1 ea PO DAILY 0RF cholecalciferol (vitamin D3) 1,000 UNIT tablet 1,000 unit PO DAILY Qty: 1 0RF lorazepam 1 mg tablet 1 mg PO QHS PRN (Reason: sleep) Qty: 90 1RF acetaminophen 500 mg Tablet 500 mg PO Q4H PRN0RF Discontinued bisacodyl [Dulcolax (bisacodyl)] 5 mg tablet,delayed release (DR/EC) 5 mg PO ONCE Qty: 4 0RF Rx Instructions: Take according to provider's instructions for colonoscopy prep. polyethylene glycol 3350 17 gram/dose powder 17 g PO ONCE Qty: 238 0RF Rx Instructions: To be taken as directed by prescriber's office for colonoscopy prep. Discharge Instructions Instructions: Diverticulosis (DC), Colorectal Polyps (DC) Additional Instructions: Findings: 3 small polyps diverticulosis of the sigmoid colon Follow up: 5 years for your next colonoscopy Please call if you develop: fevers >101.5 Nausea or Vomiting Abdominal pain that is not transient Rectal bleeding that is more then a tbsp A hard abdomen and inability to pass gas DAY SURGERY UNIT POST ENDOSCOPY INSTRUCTIONS Instructions for everyone who is given Anesthesia: For your safety, please do the following for the next 24 Hours: a. Do not drive or operate dangerous equipment b. Do not drink alcohol beverages or use any recreational drugs for the first 24 hours or while taking pain medications. The medications in your body may have a reaction that can be dangerous. c. Do not make any important decisions or sign any important papers 1. Generally there are no restrictions on your activity after a day or so has gone by, but you may feel a bit fatigued for a few days. 2. After you arrive home you may have a light meal and return to a normal diet as you can tolerate it without feeling sick to your stomach. 3. After surgery, you may feel pain or discomfort. This should be only transient, but if it persists please contact your doctor. 4. If there are any questions regarding the findings of your procedure, please feel free to contact your doctor. 6. If you are unable to contact your doctor with a problem, contact the hospital at [phone]. 7. Continue all your regular medications unless directed otherwise. I understand the above instructions and have no questions. Signature of Patient or Responsible Adult Escort Date/Time Name of Responsible Adult Escort Signature of Nurse Date/Time Activity:: Activity as Tolerated Diet:: high fiber diet Discharge Orders Discharge Orders: Discharge Order (Routine); Ordered 05/25/21 Ordered By: Heidy Ventura
[2021-05-25 08:04] VITALS: BP 151/86; PULSE 66; RESP 16; TEMP 36.7; O2SAT 100
[2021-05-25] MEDS: Lactated Ringers 1,000 ML 80 ML IV (08:16)
--- NOTE | 2021-05-25 08:59 | ANES.PREOP_ITS ---
General Info Date of Service Date Performed: 05/25/21 Height: 5 ft 2 in Weight: 57.4 kg Body Mass Index (BMI): 23.1 Surgical Procedure: Operation Date: 05/25/21 09:20 Proposed Procedure Side Surgeon p Colonoscopy Heidy Ventura MD Meds Allergies and Home Medications Allergies Allergy/AdvReac Type Severity Reaction Status Date / Time oxycodone AdvReac Severe facial Verified 05/25/21 08:03 numbness amlodipine AdvReac Intermediate Headache Verified 05/25/21 08:03 metoclopramide AdvReac Unknown URGENCY Verified 05/25/21 08:03 Home Medication Medication Instructions Recorded vitamin B complex 1 ea PO DAILY 11/22/12 cholecalciferol (vitamin D3) 25 1,000 unit PO DAILY #1 10/28/15 mcg (1,000 unit) tablet acetaminophen 500 mg tablet 500 mg PO Q4H PRN 01/16/19 magnesium 30 mg tablet 30 mg PO DAILY 04/23/20 zinc 50 mg tablet 50 mg PO DAILY 05/05/21 lorazepam 1 mg tablet 1 mg PO QHS PRN #90 tab 05/12/21 bisacodyl 5 mg tablet,delayed 5 mg PO ONCE #4 tab 05/21/21 release (Dulcolax (bisacodyl)) calcium polycarbophil 625 mg tablet 1,250 mg PO DAILY 05/21/21 famotidine 10 mg tablet 10 mg PO DAILY 05/21/21 polyethylene glycol 3350 17 17 g PO ONCE #238 g 05/21/21 gram/dose oral powder Current Visit Medications: Current Medications Generic Name Dose Route Start Last Admin Trade Name Olivierq PRN Reason Stop Dose Admin Hyoscyamine Sulfate 0.125 mg 05/25/21 06:50 Hyoscyamine 0.125 Mg Sl/Oral/Chew SL DIRECTED PRN Ringer's Solution 1,000 mls @ 80 mls/hr 05/25/21 06:00 05/25/21 08:16 IV 05/25/21 23:59 80 mls/hr INFUSION CHALO Administration IV Miscellaneous Supplies 1 each 05/25/21 06:00 Iv Access IV 05/25/21 23:59 DIRECTED CHALO Ondansetron HCl 4 mg 05/25/21 06:50 Ondansetron 4 Mg/2 Ml Vial IVP Q4H PRN PRN Nausea / Vomiting Sodium Chloride 0 ml 05/25/21 06:00 Normal Saline Flush 10 Ml Syr IV 05/25/21 23:59 PRN PRN Sodium Chloride 0 ml 05/25/21 06:00 Normal Saline 10 Ml Vial IJ 05/25/21 23:59 DIRECTED PRN Sterile Water 0 ml 05/25/21 06:00 Water,Injection,Sterile 10 Ml Vial IJ 05/25/21 23:59 DIRECTED PRN PFSH Active Problems Active Problems: Problem Status Onset Code Pelvic pain R10.2 Elevated blood pressure reading R03.0 Family history of breast cancer in mother 03/02/17 Z80.3 Irritable colon K58.9 Medical History Medical History Arthritis of right acromioclavicular joint Arthritis of right shoulder region Asymmetrical sensorineural hearing loss Bursitis of right shoulder Calcific tendinitis of right shoulder Facial skin lesion Fibrocystic disease of breast (02/10/94) Gastric ulcer (02/10/01) EGD; neg HPylori Gastroesophageal reflux disease with esophagitis Genu varum, acquired (02/14/13) Hiatal hernia Hormone replacement therapy (postmenopausal) Hypertension Injury of posterolateral corner of left knee (08/05/19) Internal derangement of left knee Labral tear of shoulder, degenerative Lateral epicondylitis, right elbow Lumbosacral radiculitis Medial epicondylitis of both elbows Medial meniscus tear OA (osteoarthritis) of knee (02/14/13) Pes anserinus bursitis of left knee (~09/2018) Rotator cuff tear, right Tendonitis of long head of biceps brachii of right shoulder Surgical History Surgical History Appendectomy Arthroplasty of knee multiple surgeries Colonoscopy - MAC 2000 2013-[facility] Diagnostic Laproscopy lysis of adhesions EGD - MAC (~2001) with ulcer, negative H. Pylori H/O wrist surgery H/O: hysterectomy History of arthroscopy of knee History of bilateral oophorectomy History of carpal tunnel surgery of right wrist (03/02/17) also carpectomy right wrist History of esophagogastroduodenoscopy History of laparoscopy (12/26/13) History of total right knee replacement (TKR) (03/02/17) 2013 Hysterectomy, Laproscopic Oophrectomy, Both Status post appendectomy Status post laparoscopic hysterectomy Status post total knee replacement using cement (02/14/13) Tobacco Smoking/Tobacco Use Status: Never Passive smoking exposure: No Second hand exposure: Yes Alcohol Alcohol Intake: current Alcohol intake frequency: 0-2 drinks per day Alcohol type: hard liquor Substance Use Substance use: Never Substance use type: does not use Vital Signs and Lab Results Vital Signs Most Recent Vital Signs in EMR: Most Recent Vital Signs Temp Pulse Resp BP Pulse Ox 36.7 C 66 16 151/86 H 100 05/25/21 08:04 05/25/21 08:04 05/25/21 08:04 05/25/21 08:04 05/25/21 08:04 Lab Results Blood Type / Crossmatch: No Data to Display Complete Blood Count: No Data to Display Complete Metabolic Panel: Sodium Level 143 mmol/L (136-145) 05/08/21 08:50 05/08/21 Potassium Level 4.8 mmol/L (3.5-5.1) 05/08/21 08:50 05/08/21 Chloride Level 106 mmol/L (98-107) 05/08/21 08:50 05/08/21 Carbon Dioxide Level 30.2 mmol/L (21.0-32.0) 05/08/21 08:50 05/08/21 Blood Urea Nitrogen 19 mg/dL (7-18) H 05/08/21 08:50 05/08/21 Creatinine 0.6 mg/dL (0.55-1.02) 05/08/21 08:50 05/08/21 Estimated GFR/1.73 m2 >= 60.00 (mL/min/1.73m2) 05/08/21 08:50 05/08/21 Calcium Level 9.3 mg/dL (8.5-10.1) 05/08/21 08:50 05/08/21 Glucose Level 103 mg/dL (74-106) 05/08/21 08:50 05/08/21 Liver Function Panel: No Data to Display Coagulation Panel: No Data to Display Cardiac Panel: No Data to Display Arterial Blood Gas: No Data to Display Venous Blood Gas: No Data to Display Pancreas Panel: No Data to Display Thyroid Panel: No Data to Display Infectious Disease: Coronavirus (COVID-19)(PCR) Negative (Negative) 05/22/21 09:09 05/22/21 Coronavirus 2019 Source Nasal/Nares 05/22/21 09:09 05/22/21 Blood Cultures: No Data to Display Toxicology Panel: No Data to Display Anesthesia Assessment and Plan Anesthesia History Personal History: No History of Anesthesia Complications Family History: No Family History of Anesthesia Complications Exercise Tolerance Exercise Tolerance: Metabolic Equivalents>4 Pertinent Negatives Pertinent Negatives: No Symptoms of GERD, No Major Cardiovascular Symptoms or Complaints and No Major Pulmonary Symptoms or Complaints Cardiac & Pulmonary Exam Cardiac Exam: Normal S1/S2 Heart Sounds Pulmonary Exam: Clear Bilateral Breath Sounds Implantable Cardiac Device Does patient have a Pacemaker or an ICD?: No Airway Exam Known Difficult Airway: No Mallampati Class: 1 Mouth Opening: Normal (> 3cm) Thyromental Distance: Greater than 3 cm Neck Range of Motion: Full ROM Neck Circumference: Normal Teeth Condition: Normal Dentition ASA Classification ASA Score: ASA 2 Emergency Case?: No NPO Status NPO Status: NPO Clears >2 hours, Solids >8 hours Anesthesia Plan Resuscitation Status: Full Code Anesthesia Technique: General Anesthesia Airway Planned: Natural Airway Monitors Used: Standard Monitors
[2021-05-25 09:03] VITALS: BMI 23.1
--- NOTE | 2021-05-25 09:44 | BOWEL_PTH ---
PATIENT: George Quarles LOC: [facility] U#:[id number] AGE/SX: 71/F ROOM: RE05/25/[address]: Heidy Ventura MD : 1950 BED: DIS: 05/25/2021 SPEC #: [id number] RECD: 05/25/21 12:52 STATUS: STUART REJarad #: [id number] ROSEMARY: 05/25/21 09:[address]: Heidy Ventura DEPT: Surgical Specimen RECD BY: Kristine Nagel ENTERED: 05/25/21 12:53 SP TYPE: Bowel OTHR DR: Alyssa Javed Tissues: 1 - BIOPSY BOWEL 2 - BIOPSY BOWEL Procedures: GROSS AND MICRO LEVEL 4 Comments: [id number]
[2021-05-25 10:07] VITALS: BP 116/77; PULSE 64; RESP 16; TEMP 36.4; O2SAT 98
[2021-05-25 10:43] VITALS: BP 123/83; PULSE 56; RESP 16; TEMP 36.3; O2SAT 99
--- NOTE | 2021-05-25 11:32 | W.ANESPOSTOP ---
Postoperative Evaluation Date, Time and Location Date Performed: 05/25/21 Time Performed: 11:15 Patient Location: Day Surgery Unit Vital Signs Most Recent Imported Vital Signs: Most Recent Vital Signs Temp Pulse Resp BP Pulse Ox 36.4 C L 64 16 116/77 98 05/25/21 10:07 05/25/21 10:07 05/25/21 10:07 05/25/21 10:07 05/25/21 10:07 Pain Score Most Recent Pain Score: Most Recent Pain Score Pain Level 0 05/25/21 10:07 Assessment Mental Status: Awake (Alert & Oriented to Patient Baseline) Airway and Respiratory Function: Patent airway with normal (patient baseline) respiratory exam Cardiovascular Function: Hemodynamically Stable Hydration Status: Adequately Hydrated Nausea & Vomiting: No Nausea or Vomiting Pain: Pt. Denies Any Pain Peripheral Nerve Block: Patient did not receive a nerve block
== END 2021-05-25 11:28 | disposition home or self-care (01) ==
LOC: SUR 07:40
PROVIDERS: PCP Family Medicine; Visit Provider Surgery
PROC: 0DJD8ZZ Inspection of Lower Intestinal Tract, Via Natural or Artificial Opening Endoscopic (ICD-10-PCS; CPT 45378; principal; 2021-05-25 09:15)
DX: K63.5 Polyp of colon (principal); R10.9 Unspecified abdominal pain; R19.4 Change in bowel habit; K57.30 Diverticulosis of large intestine without perforation or abscess without bleeding
CPT/HCPCS: 45380; 88305; J2001

== ENCOUNTER → 2021-07-21 09:43 | Outpatient (BNVA) | payer MEDICARE, SELFPAY | PROVIDERS: PCP Family Medicine; Referring Provider Family Medicine; Visit Provider Student in an Organized Health Care Education/Training Program | DX: M19.011 Primary osteoarthritis, right shoulder (principal); M75.21 Bicipital tendinitis, right shoulder; M18.12 Unilateral primary osteoarthritis of first carpometacarpal joint, left hand; M18.11 Unilateral primary osteoarthritis of first carpometacarpal joint, right hand | CPT/HCPCS: 20610; 99214; J1030 ==

== ENCOUNTER 2021-08-17 09:22 | Outpatient (CLI) | payer MEDICARE, SELFPAY ==
--- NOTE | 2021-08-17 08:45 | DI.RAD_ITS ---
Exam(s) XR KNEE RT 4V AP,LAT,MARCIE,PAT EXAM: XR KNEE RT 4V AP,LAT,MARCIE,PAT CLINICAL HISTORY: right knee pain. TECHNIQUE: 2D digital imaging was performed. Four views. COMPARISON: 2012 FINDINGS: BONES: No acute fracture is present. No bony destructive lesion is seen. There is a total knee prosthesis. There is a small amount of lucency adjacent to the tibial tray. No significant lucency around the femoral component. JOINTS: The knee is normally aligned. SOFT TISSUE: Small joint effusion and suprapatellar calcification. IMPRESSION: Small amount of lucency at adjacent to the tibial component of the knee prosthesis could indicate loo sening. Small joint effusion with calcification. DATA REPOSITORY: RADIATION DOSE DELIVERED:
== END 2021-08-17 09:23 | disposition home or self-care (01) ==
LOC: DIORS 09:22
PROVIDERS: PCP Family Medicine; Referring Provider Family Medicine; Visit Provider Physician Assistant
DX: Z96.651 Presence of right artificial knee joint (principal); T84.032A Mechanical loosening of internal right knee prosthetic joint, initial encounter
CPT/HCPCS: 99214; 73564

== ENCOUNTER → 2021-09-02 01:19 | Outpatient (CLI) | payer MEDICARE, SELFPAY ==
--- NOTE | 2021-09-02 07:15 | DI.NM_ITS ---
Exam(s) NM BONE SCAN 3 PHASE EXAM: NM BONE SCAN 3 PHASE CLINICAL HISTORY: R KNEE PAIN, LOOSENING PROSTHESIS RT TKR, T84.032A. TECHNIQUE: Injected Dose: 26 mCi Tc-99m MDP COMPARISON: NM WholeBody from 03/21/2009 CR XR KNEE RT 4V AP,LAT,MARCIE,PAT from 08/17/2021 FINDINGS: Perfusion: Symmetric. Blood Pool: Symmetric. Delayed: There is focal increased radiotracer activity at the prosthetic-bone interface in the proxim al right tibia. IMPRESSION: Focal increased radiotracer uptake at the prosthetic-bone interface in the proximal right tibia which can be seen with loosening. DATA REPOSITORY:
== END ==
PROVIDERS: PCP Family Medicine; Visit Provider Student in an Organized Health Care Education/Training Program
DX: M25.561 Pain in right knee (principal); T84.032A Mechanical loosening of internal right knee prosthetic joint, initial encounter
CPT/HCPCS: 78315

== ENCOUNTER → 2021-09-07 09:49 | Outpatient (BNVA) | payer MEDICARE, SELFPAY | PROVIDERS: PCP Family Medicine; Referring Provider Family Medicine; Visit Provider Student in an Organized Health Care Education/Training Program | DX: T84.032A Mechanical loosening of internal right knee prosthetic joint, initial encounter (principal) | CPT/HCPCS: 99212 ==

== ENCOUNTER → 2021-10-21 01:40 | Outpatient (CLI) | payer MEDICARE, SELFPAY ==
--- NOTE | 2021-10-21 07:30 | DI.DEXA_ITS ---
Exam(s) XR DEXA BONE DENSITY W/WO MARY KAY EXAM: XR DEXA BONE DENSITY W/WO MARY KAY CLINICAL HISTORY: SCREENING FOR OSTEOPOROSIS IN POSTMENOPAUSAL WOMAN,Z78.0 TECHNIQUE: COMPARISON: No exams were available for comparison FINDINGS: DEXA scan was performed according to the usual protocol. Please see the accompanying data sheets. Findings for left hip scanning are T-score -0.6 with left femoral neck T-score -0.7. Findings for lumbar spine scanning are T-score 0.4. Findings for left forearm scanning are T-score -2.6. IMPRESSION: Measurements are consistent with osteoporosis according to the WHO criteria. Please note that the la teral vertebral scanogram shows no evidence of a vertebral compression fracture. RADIATION DOSE DELIVERED: Total DLP
== END ==
PROVIDERS: PCP Family Medicine; Visit Provider Family Medicine
DX: Z78.0 Asymptomatic menopausal state (principal); Z13.820 Encounter for screening for osteoporosis; M81.0 Age-related osteoporosis without current pathological fracture
CPT/HCPCS: 77080

== ENCOUNTER 2022-08-11 02:09 | Outpatient (CLI) | payer MEDICARE, SELFPAY ==
--- NOTE | 2022-08-11 08:30 | DI.RAD_ITS ---
Exam(s) XR HIP LT COMPLETE AP PELVIS EXAM: XR HIP LT COMPLETE AP PELVIS INDICATION: Left hip pain,m25.552. COMPARISON: No exams were available for comparison TECHNIQUE: 2D digital imaging was performed. Three views. FINDINGS: No fracture or dislocation. No suspicious lytic or blastic lesion visible. Hip joint spaces are maintained. There is mild bilateral acetabular spurring. There is spurring fro m the margins of the femoral heads bilaterally, left greater than right. The SI joints show mild deg enerative changes. IMPRESSION: Hadp-um-mgnymnyi degenerative changes of both hips, left greater than right. DATA REPOSITORY: RADIATION DOSE DELIVERED:
== END 2022-08-11 02:29 ==
LOC: DI 02:11
PROVIDERS: PCP Family Medicine; Visit Provider Family Medicine
DX: M16.0 Bilateral primary osteoarthritis of hip (principal)
CPT/HCPCS: 73502

== ENCOUNTER 2022-09-28 02:50 | Outpatient (CLI) | payer MEDICARE, SELFPAY ==
[2022-09-28 16:50] LABS: Calculated LDL 85 mg/dL (<100); Cholesterol 256 mg/dL (<200); HDL Cholesterol 158 mg/dL (40-60); Triglyceride 67 mg/dL (<150)
[2022-09-30 09:27] LABS: Hepatitis C Ab w Rflx HCV PCR Negative (Negative)
== END 2022-09-28 02:51 | disposition home or self-care (01) ==
LOC: LBO 02:50
PROVIDERS: PCP Family Medicine; Visit Provider Family Medicine
DX: I10 Essential (primary) hypertension (principal); Z11.59 Encounter for screening for other viral diseases; Z00.00 Encounter for general adult medical examination without abnormal findings; Z13.6 Encounter for screening for cardiovascular disorders
CPT/HCPCS: 36415; 80061; 86803

== ENCOUNTER 2022-10-06 02:35 | Outpatient (CLI) | payer MEDICARE, SELFPAY ==
--- NOTE | 2022-10-06 08:45 | DI.MRI_ITS ---
Exam(s) MR LUMBAR SPINE WO EXAM: MR LUMBAR SPINE WO CLINICAL HISTORY: ongoing left sciatica, h/o injections,m54.32. TECHNIQUE: Multiplanar multisequence MRI of the Lumbar spine was performed. COMPARISON: MR MR lumbar spine wo from 06/13/2018 FINDINGS: Bones: The last intervertebral disc space is designated the L5/S1 level for the numbering purpose of this examination. The vertebral body heights are well maintained. There is mild left convex curvatu re of the lumbar spine. Mild degenerative endplate signal changes are seen particularly at L4-L5. Cord: The conus tip ends at the L1 level. It is of normal size and signal intensity. T12-L1: No disc herniations or bulges are present. No central spinal canal or neural foraminal stenos is. L1-2: No disc herniations or bulges are present. No central spinal canal or neural foraminal stenosis . L2-3: No disc herniations or bulges are present. No central spinal canal or neural foraminal stenosis . L3-4: There is a diffuse disc bulge. There are degenerative changes of the facets and hypertrophy of the ligamentum flavum. There is mild narrowing of the central spinal canal. No significant neural foraminal stenosis. L4-5: There is a central disc herniation. There are hypertrophic changes of the facets and ligamentu m flavum. The findings result in marked central spinal canal stenosis. Moderately severe right neur al foraminal stenosis is present no significant left neural foraminal stenosis. L5-S1: There are degenerative changes of the facets. There is a mild diffuse disc bulge. No signifi cant central spinal canal stenosis is seen. There is no significant neural foraminal stenosis. Soft tissues: The visualized SI joints and sacrum are well maintained. The paraspinal soft tissues ar e unremarkable. IMPRESSION: 1. Degenerative changes and a disc bulge at L4-5 causing marked central spinal canal stenosis and mod erately severe right neural foraminal stenosis. 2. Degenerative changes and a diffuse disc bulge at L3-L4 causing mild central spinal canal stenosis. 3. Multilevel degenerative changes in the lumbar spine. DATA REPOSITORY:
== END 2022-10-06 02:55 ==
LOC: DI 02:35
PROVIDERS: PCP Family Medicine; Visit Provider Family Medicine
DX: M54.32 Sciatica, left side (principal); M99.63 Osseous and subluxation stenosis of intervertebral foramina of lumbar region; M48.02 Spinal stenosis, cervical region
CPT/HCPCS: 72148

== ENCOUNTER → 2022-11-01 07:53 | Outpatient (BNVA) | payer MEDICARE, SELFPAY | PROVIDERS: PCP Family Medicine; Referring Provider Family Medicine | DX: M16.12 Unilateral primary osteoarthritis, left hip (principal); M70.62 Trochanteric bursitis, left hip | CPT/HCPCS: 99213 ==

== ENCOUNTER → 2022-11-25 12:51 | Outpatient (BNVA) | payer MEDICARE, SELFPAY | PROVIDERS: PCP Family Medicine; Referring Provider Family Medicine; Visit Provider Student in an Organized Health Care Education/Training Program | DX: M16.12 Unilateral primary osteoarthritis, left hip (principal); M70.62 Trochanteric bursitis, left hip | CPT/HCPCS: 20611; J1040 ==

== ENCOUNTER 2022-12-22 13:52 | Outpatient (CLI) | payer MEDICARE, SELFPAY ==
--- NOTE | 2022-12-22 13:45 | RT.EKG_ITS ---
APPROVED REPORT Exam: Resting ECG Reason for Exam: Pre Operative Examination Patient Location: O HR:70 bpm ECG Measurements Heart Rate 70 AXIS MT 170 P 5 QRSd 85 QRS 60 QT 400 T 38 QTc 432 Conclusion Sinus rhythm...normal P axis, V-rate 50- 99 Normal Electrocardiogram
== END 2022-12-22 13:53 | disposition home or self-care (01) ==
LOC: DI.CM 13:53
PROVIDERS: PCP Family Medicine; Visit Provider Family Medicine
DX: Z01.818 Encounter for other preprocedural examination (principal)
CPT/HCPCS: 93010

== ENCOUNTER 2023-01-07 02:32 | Outpatient (CLI) | payer MEDICARE, SELFPAY ==
[2023-01-07 14:31] LABS: RBC 3.92 10^6/uL (3.93-5.22); WBC 5.28 10^3/uL (4.4-10.8)
[2023-01-07 14:32] LABS: HCT 38.7 % (36.0-46.0); HGB 12.7 g/dL (11.2-15.7); MCH 32.4 pg (27.0-33.0); MCHC 32.8 % (32.0-36.0); MCV 99 fL (80-95); MPV 9.6 fL (8.0-11.0); Platelet Count 229 10^3/uL (130-400); RDW 11.8 % (11.7-14.6); RDW-SD 43.1 fL
[2023-01-07 15:18] LABS: ALT 22 U/L (14-59); AST 22 U/L (15-37); Albumin 4.2 g/dL (3.4-5.0); Alkaline Phosphatase 71 U/L (46-116); Anion Gap 10.3 mmol/L (3-11); BUN 27 mg/dL (7-18); Bilirubin, Total 0.3 mg/dL (0.2-1.0); CO2 26.7 mmol/L (21.0-32.0); CREATININE 0.7 mg/dL (0.55-1.02); Calcium 9.7 mg/dL (8.5-10.1); Chloride 103 mmol/L (98-107); Estimated GFR 91.83 (mL/min/1.73m2); Glucose 116 mg/dL (74-106); Potassium 4.6 mmol/L (3.5-5.1); Sodium 140 mmol/L (136-145); Total Protein 7.6 g/dL (6.4-8.2)
== END 2023-01-07 02:33 | disposition home or self-care (01) ==
PROVIDERS: PCP Family Medicine; Visit Provider Family Medicine
DX: M48.061 Spinal stenosis, lumbar region without neurogenic claudication (principal); Z01.818 Encounter for other preprocedural examination
CPT/HCPCS: 36415; 80053; 85027

== ENCOUNTER → 2023-03-17 12:59 | Outpatient (BNVA) | payer MEDICARE, SELFPAY | PROVIDERS: PCP Family Medicine; Referring Provider Family Medicine | DX: M16.12 Unilateral primary osteoarthritis, left hip (principal) | CPT/HCPCS: 20611; J1040 ==

== ENCOUNTER → 2023-05-06 00:40 | Outpatient (CLI) | payer MEDICARE, SELFPAY ==
--- NOTE | 2023-05-06 | DI.MRI_ITS ---
Exam(s) MR LUMBAR SPINE WO/W EXAM: MR LUMBAR SPINE WO/W CLINICAL HISTORY: NUMBNESS OF LEG,R20.0. TECHNIQUE: Multiplanar multisequence MRI of the Lumbar Spine was performed. CONTRAST MATERIAL: IV Contrast: 11 mL of Dotarem contrast administered. COMPARISON: MR MR lumbar spine wo from 06/13/2018 MR MR LUMBAR SPINE WO from 10/06/2022 FINDINGS: The examination is limited due to patient motion artifact. Bones: The last intervertebral disc space is designated the L5/S1 level for the numbering purpose of this examination. The vertebral body heights are well maintained. There is a left convex scoliosis o f the lumbar spine. There are degenerative endplate signal changes particularly at L4-L5. Cord: The conus tip ends at the T12 level. It is of normal size and signal intensity. T12-L1: No disc herniations or bulges are present. No central spinal canal or neural foraminal stenos is. L1-2: No disc herniations or bulges are present. No central spinal canal or neural foraminal stenosis . L2-3: Mild degenerative changes are seen at this level. There is a mild diffuse disc bulge. No cent ral spinal canal or neural foraminal stenosis. L3-4: There is a mild diffuse disc bulge. There are degenerative changes of the facets and ligamentu m flavum hypertrophy. Trhe-jb-xfbrkzte central spinal canal stenosis is present. No significant rig ht neural foraminal stenosis. Mild left neural foraminal stenosis. L4-5: There is a mild diffuse disc bulge. No significant central spinal canal stenosis is seen. The re is moderately severe right and mild left neural foraminal stenosis. L5-S1: No disc herniations or bulges are present. There are degenerative changes of the facets presen t. There is mild narrowing of the central spinal canal.No significant right neural foraminal stenosi s. There is mild left neural foraminal narrowing. Soft tissues: The visualized SI joints and sacrum are well maintained. The paraspinal soft tissues ar e unremarkable. There is enhancement seen in the scar tissue posteriorly to L4-5. There is a small 8 x 6 mm fluid co llection in the surgical bed. (Series 6001, image 14). The postsurgical changes do not cause any si gnificant narrowing of the central spinal canal or nerve roots. IMPRESSION: 1. Status post laminectomy at L4-L5. There is a 8 x 6 mm fluid collection in the surgical bed. This r epresent a seroma, resolving hematoma or abscess. 2. No evidence of central spinal canal stenosis at L4-L5. Degenerative related neural foraminal steno sis is seen. 3. Multilevel degenerative changes in the lumbar spine resulting in central spinal canal neural sunil inal stenosis as described above. DATA REPOSITORY:
[2023-05-06 12:12] LABS: BUN 23 mg/dL (7-18); CREATININE 0.8 mg/dL (0.55-1.02); Estimated GFR 77.75 (mL/min/1.73m2)
[2023-05-06] MEDS: Normal Saline Flush 10 ML SYR IVP (12:18)
[2023-05-06] MEDS: Gadoterate meglumine 20 ML SYRINGE 11 ML IVP (12:18)
== END ==
PROVIDERS: PCP Family Medicine; Visit Provider Neurological Surgery
DX: Z98.890 Other specified postprocedural states (principal); M48.062 Spinal stenosis, lumbar region with neurogenic claudication
CPT/HCPCS: 72158; 84520; 82565

== ENCOUNTER → 2023-05-16 14:12 | Outpatient (BNVA) | payer MEDICARE, SELFPAY | PROVIDERS: PCP Family Medicine; Referring Provider Family Medicine | DX: M70.62 Trochanteric bursitis, left hip (principal); M16.12 Unilateral primary osteoarthritis, left hip; M54.16 Radiculopathy, lumbar region | CPT/HCPCS: 20610; J1040 ==

== ENCOUNTER → 2023-08-18 15:00 | Outpatient (BNVA) | payer MEDICARE, SELFPAY | PROVIDERS: PCP Family Medicine; Referring Provider Family Medicine; Visit Provider Student in an Organized Health Care Education/Training Program | DX: G57.02 Lesion of sciatic nerve, left lower limb (principal); M16.12 Unilateral primary osteoarthritis, left hip | CPT/HCPCS: 20611; J1010 ==

== ENCOUNTER 2023-10-06 11:41 | Outpatient (CLI) | payer MEDICARE, SELFPAY ==
[2023-10-06 11:48] VITALS: BP 121/73; PULSE 62; RESP 20; TEMP 36.7; O2SAT 100
[2023-10-06 12:50] VITALS: PULSE 65; O2SAT 100
[2023-10-06] MEDS: Nerve Block Tray 1 EACH MC (12:56)
[2023-10-06] MEDS: Lidocaine 2% Pres-Free 5 ML VIAL IJ (12:56)
[2023-10-06] MEDS: methylPREDNISolone ACETATE 40 MG/ML VIAL IJ (12:57)
--- NOTE | 2023-10-06 13:41 | PDOC.PAIN ---
Date of service: 10/06/23 Time of Service: 12:45 US Guided Injections Type of Ultrasound Guided Injection: Left Piriformis Injection Pre-Procedural Evaluation Tenderness over the left Piriformis muscle Referral Patient has been referred to the [facility] for Left Piriformis Injection for a chief complaint of Left buttock pain radiating into the left posterior thigh Pre-Procedural Pain Score Pre-procedural pain score: 5/10 Reason for Exam Pain to the left buttock Patient Interview Patient was interviewed and medical record reviewed: Yes There were no contraindications to performing an US guided procedure. Risks,expected side effects, potential benefits were reviewed. The patient consent form was signed and witnessed. Standard time out procedure was performed. Patient Safety No visible skin abnormalities Procedure Description No sedation given for procedure Patient was placed in the prone position and the following Pulse Ox applied. Pre-Procedure ultrasound scanning performed using a Linear 18 MHz probe Site Preparation Chloroprep Local Anesthesia Skin and subcutaneous tissues anesthetized with: 2 mL of Lidocaine 2%. A 21 G 3.5 Pajunk ultrasound needle was placed under live US guidance using an in-plane approach to the target area. After visualization of the needle tip at the target area Total of Injectate/Medication Note: 40 mg of Depomedrol given into the Piriformis muscle Negative aspiration for blood. [place] were removed without difficulty. Ultrasound images were captured and stored. Patient Mental Status Patient was alert and awake during procedure Vital Signs Vital signs were stable throughout the procedure and recorded by nursing. Follow Up/Discharge Follow up plans and appointments were discussed with patient. Post procedure instruction was given as documented in nursing documentation. Discharge criteria met and patient discharged from [facility] Management Center: Yes Post Procedure Pain Post Procedure Pain: 4/10 Patient tolerated procedure well Procedure Outcome: Successful Piriformis Injection Non US Guided Injections Procedure Description Patient was placed in the prone position Post Procedure Pain Post Procedure Pain: 4/10
== END 2023-10-06 11:42 | disposition home or self-care (01) ==
LOC: PC 11:41
PROVIDERS: PCP Family Medicine; Visit Provider Preventive Medicine Occupational Medicine
DX: G57.02 Lesion of sciatic nerve, left lower limb (principal); M79.18 Myalgia, other site
CPT/HCPCS: 20552; J1010

== ENCOUNTER 2024-01-09 15:36 | Outpatient (CLI) | payer MEDICARE, SELFPAY ==
--- NOTE | 2024-01-09 14:25 | DI.RAD_ITS ---
Exam(s) XR PELVIS AP EXAM: XR PELVIS AP CLINICAL HISTORY: OA L HIP. TECHNIQUE: 2D digital imaging was performed. COMPARISON: CR XR HIP LT COMPLETE AP PELVIS from 08/11/2022 FINDINGS: Single AP view of pelvis-hips Is no evidence of pelvic nor hip fractures. There is mild narrowing of the left hip joint space lana lar to previous. Right hip joint space exhibits minimal narrowing. Sacroiliac joints appear unremar kable. No osseous lesions. No evidence of avascular necrosis. Mild-moderate left hip joint space narrowing, similar to 08/11/2022. IMPRESSION: DATA REPOSITORY: RADIATION DOSE DELIVERED:
== END 2024-01-09 15:37 | disposition home or self-care (01) ==
LOC: DIORS 15:36
PROVIDERS: PCP Family Medicine; Referring Provider Family Medicine; Visit Provider Student in an Organized Health Care Education/Training Program
DX: M16.12 Unilateral primary osteoarthritis, left hip (principal)
CPT/HCPCS: 99214; 72170

== ENCOUNTER 2024-05-21 03:47 | Outpatient (CLI) | payer MEDICARE, SELFPAY ==
[2024-05-21 09:55] LABS: HCT 39.7 % (36.0-46.0); HGB 12.8 g/dL (11.2-15.7); MCH 32.2 pg (27.0-33.0); MCHC 32.2 % (32.0-36.0); MCV 100 fL (80-95); MPV 9.5 fL (8.0-11.0); Platelet Count 212 10^3/uL (130-400); RBC 3.98 10^6/uL (3.93-5.22); RDW 12.3 % (11.7-14.6); RDW-SD 45.9 fL; WBC 3.89 10^3/uL (4.4-10.8)
[2024-05-21 10:19] LABS: Anion Gap 7.5 mmol/L (3-11); BUN 25 mg/dL (7-18); CO2 30.5 mmol/L (21.0-32.0); CREATININE 0.7 mg/dL (0.55-1.02); Calcium 9.3 mg/dL (8.5-10.1); Chloride 103 mmol/L (98-107); Glucose 94 mg/dL (74-106); Potassium 4.6 mmol/L (3.5-5.1); Sodium 141 mmol/L (136-145)
== END 2024-05-21 03:48 | disposition home or self-care (01) ==
LOC: LBO 03:47
PROVIDERS: PCP Family Medicine; Visit Provider Student in an Organized Health Care Education/Training Program
DX: M70.62 Trochanteric bursitis, left hip (principal); Z01.818 Encounter for other preprocedural examination; M16.12 Unilateral primary osteoarthritis, left hip
CPT/HCPCS: 36415; 80048; 85027; 99024

== ENCOUNTER 2024-08-07 07:53 | Day surgery (SDC) | payer MEDICARE, SELFPAY ==
[2024-08-07] VITALS (18 sets, daily range): BP systolic 99–139; BP diastolic 55–78; PULSE 57–66; RESP 13–18; TEMP 36.1–36.6; O2SAT 94–100; BMI 23.3
--- NOTE | 2024-08-07 07:13 | PDOC.DSDIS_ITS ---
Date of service: 08/07/24 Discharge Plan Disposition Patient Disposition: Home Condition: Good Discharge Details Reason For Visit: Left hip DJD Attending Provider: Matt Saavedra Primary Care Provider: Alyssa Javed Home Meds and New Rx's Prescriptions: New acetaminophen 500 mg tablet 1,000 mg PO Q8H PRN Qty: 90 0RF Rx Instructions: Take two tablets up to every 8 hours as needed for pain aspirin 81 mg tablet,delayed release (DR/EC) 81 mg PO BID 30 Days Qty: 60 0RF celecoxib [Celebrex] 200 mg capsule 200 mg PO BID PRNQty: 60 0RF Rx Instructions: Take one tablet twice daily for pain and inflammation docusate sodium [Colace] 100 mg capsule 100 mg PO BID Qty: 28 0RF tramadol 50 mg tablet 50 mg PO Q6H PRN (Reason: severe postoperative pain) Qty: 12 0RF Rx Instructions: Take one tablet up to every 6 hours as needed for severe pain pantoprazole 40 mg tablet,delayed release (DR/EC) 40 mg PO DAILY Qty: 14 0RF dexamethasone 4 mg tablet 4 mg PO DAILY Qty: 2 0RF Rx Instructions: Take one tablet once daily for two days Continued magnesium 30 mg tablet 30 mg PO DAILY vitamin B complex 1 EACH capsule 1 ea PO DAILY cholecalciferol (vitamin D3) 1,000 UNIT tablet 1,000 unit PO DAILY Qty: 1 Discontinued celecoxib 200 mg capsule See Rx Instructions .ROUTE .COMPLEX Qty: 180 0RF Dose Instruction: TAKE 1 CAPSULE BY MOUTH TWICE DAILY Rx Instructions: TAKE 1 CAPSULE BY MOUTH TWICE DAILY acetaminophen 500 mg Tablet 500 mg PO Q4H PRN Discharge Instructions Additional Instructions: Total Hip Discharge Instructions Activity: The most important activity is to walk. You should try to take short walks a few times a day. You have no restrictions on movement or positioning, but do not try to force what you do. You will find some stiffness and weakness with hip flexion (lifting your knee). Do not try to strengthen this too early, continue to practice walking and stairs and this will come. - Outpatient physical therapy can be helpful to help return you to a normal gait and improve your flexibility and strength. This can start around 2 weeks. For some patients, it?s not necessary. Usually this is determined at the time of discharge or at the first post-operative visit. - You should wear the HAO hose on both legs for 2 weeks. Dressing: Keep the surgical dressing in place for at least one week. After the first week it may be removed and replace with light gauze and tape or nothing. It may get wet after 3 days but avoid soaking the dressing. If it gets wet, just lightly pat dry. It is important to always keep some gauze between skin folds, especially when you are sitting. Spend some time with the wound exposed when you are lying flat as the incision does wrinkle onto itself. Medications: - You should take Tylenol and an anti-inflammatory Celebrex as your primary pain control medications. If the Celebrex is too expensive or not covered, please call the office for another alternative (Advil/Ibuprofen or Naproxen/Aleve). - You have been prescribed a stronger pain medication Tramadol for breakthrough pain, take as needed as prescribed. - You have also been prescribed a stomach acid reduction agent Pantoprozole to help reduce stomach acid and reflux. - You have also been prescribed Decadron to help with post-operative nausea and pain. You will take this for two days starting tomorrow. - You will be taking Aspirin 81mg twice a day for DVT prevention unless instructed otherwise. - If you have constipation you should take Colace (which has been prescribed) or Miralax (which is available [id number]-eno-bzcegam). It takes most people 3-4 days to have a bowel movement. Follow-up: 2 weeks If you have any acute concerns or questions, please do not hesitate to contact the office at [phone]. You may contact Dr. Saavedra with any questions after hours through the hospital at [phone] or on his cell phone at [phone]. Stand Alone Forms: Anesthesia Discharge InstAnish, Suellen Keating ([facility]) Referrals: Matt Saavedra MD [ [facility] STAFF PHYSICIAN] - 08/20/24 9:45 am Equipment/Supplies: Walker Activity:: Elevate Remove Dressings/Wound Care:: Do Not Remove Shower/Bathe:: Cover Diet:: As Tolerated Discharge Orders Discharge Orders: Discharge Order (Routine); Ordered 08/07/24 Ordered By: Rocio Thrasher
--- NOTE | 2024-08-07 08:50 | HPE_ITS ---
Assessment and Plan Assessment and plan (1) Degenerative joint disease of left hip: Status: Chronic Assessment and plan: George is a 74-year-old active female who has arthritis about the left hip. She has some other symptoms about the left hip, most consistent with trochanter bursitis, piriformis syndrome, and some chronic radiculopathy. However, the primary etiology of her pain is the hip and I expect that some of these other symptoms will improve after the hip replacement was again I reviewed the details of hip replacement surgery. I discussed the risk to include bleeding, infection, pain, stiffness, damage to nerves and vessels, damage to muscle and tendons, leg length inequality, blood clot. Spite these risk, she elects to proceed. History of Present Illness History of Present Illness Chief Complaint: Left hip pain Narrative: George is a 74-year-old active female who have seen previously for left hip arthritis. She has had multiple injections which have helped with her pain. She also has some ongoing numbness in the back of the leg mostly into the foot along with some cramping which has not been directly related to the hip nor to the back. She has pain with weightbearing activities which have resolved or least improved significantly with the injections. She was scheduled for surgery previously but had to cancel due to a significant upper respiratory infection. She now has no residual symptoms. No chest pain or shortness of breath. Review of Systems All systems reviewed & are unremarkable except as noted in HPI and below PFSH All Active Problems Muscle pain (Acute) Piriformis syndrome of left side (Acute) Lumbar radiculopathy (Acute) Trochanteric bursitis, left hip (Acute) PCP 40 mg Depo injection: 08/13/22 DEPO MEDROL 05/16/23 Degenerative joint disease of left hip (Chronic) POCUS INJECTION 08/18/23; 03/17/23; 11/25/2022 Left cervical radiculopathy (Acute) Osteoporosis of forearm without pathological fracture (Acute) Chronic insomnia (Chronic) mcc use of lorazepam. Loosening of prosthesis of right total knee replacement (Acute) Arthritis of carpometacarpal (CMC) joint of right thumb (Acute) Arthritis of carpometacarpal (CMC) joint of left thumb (Acute) Tubular adenoma of colon (Acute) Asymmetrical sensorineural hearing loss (Chronic) Right ear Elevated blood pressure reading (Acute) Gastroesophageal reflux disease with esophagitis (Chronic) Rare Irritable colon (Acute) Intestinal dysmotility with irritable bowel syndrome Medical History Hypertension Fibrocystic disease of breast (02/10/94) Gastric ulcer (02/10/01) EGD; neg HPylori Surgical History Status post lumbar laminectomy (01/2023) L4-5 partial laminectomy and medial facetectomy. Status post laparoscopic hysterectomy Status post appendectomy History of esophagogastroduodenoscopy History of bilateral oophorectomy History of arthroscopy of knee History of carpal tunnel surgery of right wrist (03/02/17) also carpectomy right wrist History of total right knee replacement (TKR) (03/02/17) 2012 Status post total knee replacement using cement (02/14/13) Family History Mother Neoplasm BREAST Father Heart disease Neoplasm THROAT Brother Diabetes Essential hypertension Hyperlipidemia Grandfather Heart disease Grandmother Stroke Grandmother Diabetes Essential hypertension Heart disease Social History Smoking/Tobacco Use Status: Never Second Hand Exposure: Yes Smoking risk assessment performed?: Yes Alcohol Intake: current Alcohol Intake frequency: a few times a week Alcohol type: hard liquor Drug use: Never Substance use type: does not use Caregiver/Support person: Yes (for her with dementia) Household members: spouse Housing: house Number of Children: 4 Communication Needs: None Do you need help understanding health information?: Never current occupation: [employer] salesperson Pets and animals: Yes Pets and animals: dog(s) Sexually active: No Do you think of yourself as: straight/heterosexual Current gender identity: female What is your relationship status?: How often do you talk on the phone with friends or family?: three or more times per week How often do you get together with friends or relatives?: three or more times per week How often do you attend oriental orthodox or jainism services?: decline to answer Do you belong to any clubs or organized social groups?: no Panel score (0-1 are the most socially isolated patients): 2 What type of physical activity do you participate in: regular exercise Duration: 60-90 minutes/day Frequency: 3-4 times per week Rima/Mandaen: Evangelical Special rima needs: No Seatbelt use: always Drive intox or ride w/intox dray driver: No Do you feel safe at home: Yes Do you feel safe in your relationship?: Yes Meds Allergies and Home Medications Allergies Allergy/AdvReac Type Severity Reaction Status Date / Time oxycodone AdvReac Severe facial Verified 08/07/24 08:49 numbness amlodipine AdvReac Intermediate Headache Verified 08/07/24 08:49 metoclopramide AdvReac Unknown Urinary Verified 08/07/24 08:49 URGENCY Home Medications ?Medication ?Instructions ?Recorded ?Confirmed ?Type vitamin B complex 1 ea PO DAILY 11/22/12 08/07/24 History cholecalciferol (vitamin D3) 25 1,000 unit PO DAILY ##1 10/28/15 08/07/24 History mcg (1,000 unit) tablet magnesium 30 mg tablet 30 mg PO DAILY 04/23/20 08/02/24 History acetaminophen 500 mg tablet 1,000 mg (2 x 500 mg) PO Q8H PRN 08/07/24 Rx pain #90 tabs aspirin 81 mg tablet,delayed 81 mg PO BID 30 days #60 tabs 08/07/24 Rx release celecoxib 200 mg capsule (Celebrex) 200 mg PO BID PRN #60 caps 08/07/24 Rx dexamethasone 4 mg tablet 4 mg PO DAILY #2 tabs 08/07/24 Rx docusate sodium 100 mg capsule 100 mg PO BID #28 caps 08/07/24 Rx (Colace) pantoprazole 40 mg tablet,delayed 40 mg PO DAILY #14 tabs 08/07/24 Rx release tramadol 50 mg tablet 50 mg PO Q6H PRN severe 08/07/24 Rx postoperative pain #12 tabs Exam Const General: cooperative, healthy appearing, comfortable and no acute distress Resp Effort & Inspection: normal respiratory effort Auscultation: clear to auscultation bilaterally Cardio Rate: regular rate Rhythm: regular rhythm Results Last Vital Signs Temp 36.6 C 08/07/24 08:37 Pulse 66 08/07/24 08:37 Resp 14 08/07/24 08:37 BP 134/78 08/07/24 08:37 Pulse Ox 99 08/07/24 08:37
[2024-08-07] MEDS: Acetaminophen 500 MG TAB 1000 MG PO (08:53)
[2024-08-07] MEDS: Celecoxib 200 MG CAP 400 MG PO (08:54)
[2024-08-07] MEDS: Lactated Ringers 1,000 ML 80 ML IV (09:07)
--- NOTE | 2024-08-07 09:08 | W.ANESPRE ---
General Info Date of Service Date Performed: 08/07/24 Height: 5 ft 2.5 in Weight: 58.8 kg Body Mass Index (BMI): 23.3 Surgical Procedure: Operation Date: 08/07/24 11:35 Proposed Procedure Side Surgeon p Hip Total Hip Anterior, Corail Left Matt Saavedra MD Meds Allergies and Home Medications Allergies Allergy/AdvReac Type Severity Reaction Status Date / Time oxycodone AdvReac Severe facial Verified 08/07/24 08:49 numbness amlodipine AdvReac Intermediate Headache Verified 08/07/24 08:49 metoclopramide AdvReac Unknown Urinary Verified 08/07/24 08:49 URGENCY Home Medication ?Medication ?Instructions ?Recorded vitamin B complex 1 ea PO DAILY 11/22/12 cholecalciferol (vitamin D3) 25 1,000 unit PO DAILY ##1 10/28/15 mcg (1,000 unit) tablet magnesium 30 mg tablet 30 mg PO DAILY 04/23/20 acetaminophen 500 mg tablet 1,000 mg (2 x 500 mg) PO Q8H PRN 08/07/24 pain #90 tabs aspirin 81 mg tablet,delayed 81 mg PO BID 30 days #60 tabs 08/07/24 release celecoxib 200 mg capsule (Celebrex) 200 mg PO BID PRN #60 caps 08/07/24 dexamethasone 4 mg tablet 4 mg PO DAILY #2 tabs 08/07/24 docusate sodium 100 mg capsule 100 mg PO BID #28 caps 08/07/24 (Colace) pantoprazole 40 mg tablet,delayed 40 mg PO DAILY #14 tabs 08/07/24 release tramadol 50 mg tablet 50 mg PO Q6H PRN severe 08/07/24 postoperative pain #12 tabs Current Visit Medications: Current Medications Generic Name Dose Route Start Last Admin Trade Name Freq PRN Reason Stop Dose Admin Acetaminophen 1,000 mg 08/07/24 06:00 08/07/24 08:53 Acetaminophen 500 Mg Tab PO 08/07/24 23:59 1,000 mg PREOP CHALO Administration Celecoxib 400 mg 08/07/24 06:00 08/07/24 08:54 Celecoxib 200 Mg Cap PO 08/07/24 23:59 400 mg PREOP CHALO Administration Hydromorphone HCl 0.5 mg 08/07/24 07:12 Hydromorphone 2 Mg/Ml Syr IVP 09/06/24 07:11 Q2H PRN PRN Ringer's Solution 1,000 mls @ 80 mls/hr 08/07/24 06:00 IV 08/07/24 23:59 INFUSION CHALO Cefazolin Sodium/Dextrose 2 gm in 50 mls @ 100 mls/hr 08/07/24 06:00 Ancef Duplex IVPB 08/07/24 23:59 PREOP CHALO Tranexamic Acid/Sodium Chloride 1,000 mg in 100 mls @ 600 mls/hr 08/07/24 06:00 IVPB 08/07/24 23:59 PREOP CHALO Cefazolin Sodium/Dextrose 1 gm in 50 mls @ 100 mls/hr 08/07/24 08:00 Ancef Duplex IVPB 08/08/24 00:29 Q8H CHALO IV Miscellaneous Supplies 1 each 08/07/24 06:00 Iv Access IV 08/07/24 23:59 DIRECTED CHALO Sodium Chloride 0 ml 08/07/24 06:00 Normal Saline Flush 10 Ml Syr IV 08/07/24 23:59 PRN PRN Sodium Chloride 0 ml 08/07/24 06:00 Normal Saline 10 Ml Vial IJ 08/07/24 23:59 DIRECTED PRN Sterile Water 0 ml 08/07/24 06:00 Water,Injection,Sterile 10 Ml Vial IJ 08/07/24 23:59 DIRECTED PRN Tramadol HCl 50 mg 08/07/24 07:12 Tramadol 50 Mg Tab PO 09/06/24 07:11 Q4H PRN PRN Pain Tranexamic Acid 1,300 mg 08/07/24 07:12 Tranexamic Acid 650 Mg Tab PO 09/06/24 07:11 ONCE PRN postoperative PFSH Active Problems Active Problems: Problem Status Onset Code Muscle pain Acute M79.10 Piriformis syndrome of left side Acute G57.02 Lumbar radiculopathy Acute M54.16 Trochanteric bursitis, left hip Acute M70.62 Degenerative joint disease of left hip Chronic M16.12 Left cervical radiculopathy Acute M54.12 Osteoporosis of forearm without pathological fracture Acute M81.0 Chronic insomnia Chronic F51.04 Loosening of prosthesis of right total knee replacement Acute T84.032A Arthritis of carpometacarpal (CMC) joint of right thumb Acute M18.11 Arthritis of carpometacarpal (CMC) joint of left thumb Acute M18.12 Tubular adenoma of colon Acute D12.6 Asymmetrical sensorineural hearing loss Chronic H90.3 Elevated blood pressure reading Acute R03.0 Gastroesophageal reflux disease with esophagitis Chronic K21.0 Irritable colon Acute K58.9 Medical History Medical History Hypertension Fibrocystic disease of breast (02/10/94) Gastric ulcer (02/10/01) EGD; neg HPylori Surgical History Surgical History Status post lumbar laminectomy (01/2023) L4-5 partial laminectomy and medial facetectomy. Status post laparoscopic hysterectomy Status post appendectomy History of esophagogastroduodenoscopy History of bilateral oophorectomy History of arthroscopy of knee History of carpal tunnel surgery of right wrist (03/02/17) also carpectomy right wrist History of total right knee replacement (TKR) (03/02/17) 2012 Status post total knee replacement using cement (02/14/13) Tobacco Smoking/Tobacco Use Status: Never Passive smoking exposure: Yes Second hand exposure: Yes Alcohol Alcohol Intake: current Alcohol intake frequency: holidays/special occasions only Alcohol type: hard liquor Substance Use Substance use: Never Substance use type: does not use Vital Signs and Lab Results Vital Signs Most Recent Vital Signs in EMR: Most Recent Vital Signs Temp Pulse Resp BP Pulse Ox 36.6 C 66 14 134/78 99 08/07/24 08:37 08/07/24 08:37 08/07/24 08:37 08/07/24 08:37 08/07/24 08:37 Lab Results Blood Type / Crossmatch: No Data to Display Complete Blood Count: No Data to Display Complete Metabolic Panel: No Data to Display Liver Function Panel: No Data to Display Coagulation Panel: No Data to Display Cardiac Panel: No Data to Display Arterial Blood Gas: No Data to Display Venous Blood Gas: No Data to Display Pancreas Panel: No Data to Display Thyroid Panel: No Data to Display Infectious Disease: No Data to Display Blood Cultures: No Data to Display Toxicology Panel: No Data to Display Anesthesia Assessment and Plan Anesthesia History Personal History: No History of Anesthesia Complications Family History: No Family History of Anesthesia Complications Exercise Tolerance Exercise Tolerance: Metabolic Equivalents>4 Pertinent Negatives Pertinent Negatives: No Symptoms of GERD, No Major Cardiovascular Symptoms or Complaints, No Major Pulmonary Symptoms or Complaints and No History of CVA/TIA Cardiac & Pulmonary Exam Cardiac Exam: Normal S1/S2 Heart Sounds Pulmonary Exam: Clear Bilateral Breath Sounds Implantable Cardiac Device Does patient have a Pacemaker or an ICD?: No Airway Exam Known Difficult Airway: No Mallampati Class: 1 Mouth Opening: Normal (> 3cm) Thyromental Distance: Greater than 3 cm Neck Range of Motion: Full ROM Neck Circumference: Normal Teeth Condition: Normal Dentition ASA Classification ASA Score: ASA 2 Emergency Case?: No NPO Status NPO Status: NPO Clears >2 hours, Solids >8 hours Anesthesia Plan Resuscitation Status: Full Code Anesthesia Technique: Spinal Anesthesia Airway Planned: Natural Airway Pain Management: Surgeon and patient request nerve block Monitors Used: Standard Monitors
[2024-08-07] MEDS: ceFAZolin 2 GM/50 ML BAG IVPB (10:14)
[2024-08-07] MEDS: TRANEXAMIC ACID/SOD. CHL. 1,000 MG/100 ML BAG 600 MG IVPB (10:28)
--- NOTE | 2024-08-07 11:30 | DI.RAD_ITS ---
Exam(s) XR HIP LT IN OR EXAM: XR HIP LT IN OR CLINICAL HISTORY: Degenerative joint disease of left hip. TECHNIQUE: 2D digital imaging was performed. COMPARISON: No exams were available for comparison FINDINGS: Fluoroscopy was provided intraoperatively during total hip arthroplasty. See procedure report for de tails. Total fluoroscopy time 30 seconds IMPRESSION: Radiation exposure index/cumulative dose:manuel Greenwood= 2.3802 mGy DATA REPOSITORY: RADIATION DOSE DELIVERED:
--- NOTE | 2024-08-07 11:33 | ROE_ITS ---
Operative Note Operative Note PRE-OP DIAGNOSIS: Left Hip Osteoarthritis POST-OP DIAGNOSIS: same PROCEDURE: Left Anterior Total Hip Arthroplasty with Intraoperative Navigation SURGEON: Matt Saavedra FRAMING SPECIALIST: Rocio Thrasher ANESTHESIA TYPE: Spinal Refer to Anesthesia Record ESTIMATED BLOOD LOSS: 150 PATHOLOGY: none sent TOURNIQUET TIME: 0 COMPLICATIONS: None Patient was transported to: PACU Patient's condition: stable Implants: 1. Depuy [place] Acetabular Component, 52mm 2. Depuy Acetabular Liner, [id number] 3. Depuy Actis Standard Collared Femoral Stem, Size 5 4. Depuy Altrx Ceramic Femoral Head, Size 36+5mm Indications: I have seen George in clinic for symptoms of hip arthritis, confirmed with radiographic findings. She has exhausted nonoperative methods and was having significant limitations in daily function and desired better function and less pain. I discussed the technical details of a hip replacement. I explained the risks of the procedure to include, but not limited to, bleeding, infection, pain, stiffness, fracture, damage to nerves and vessels, damage to muscles and tendons, loosening, instability, leg length inequality, need for repeat procedure, blood clot and cardiopulmonary demise. Despite these risks, George elected to proceed. Findings: There was significant signs of arthritis throughout the hip with large osteophytes around the neck and a hypertrophic and torn labrum. Procedure Description: George was greeted in the preoperative holding area where the correct side was identified and marked. The consent was reviewed with the patient and signed. The history and physical was updated. All questions were answered. She was taken back to the operating room. A spinal anesthestic was then administered. The feet were wrapped with cast padding and Coban and then placed into the boot liners and then into the boots. Care was taken to protect the skin and make sure the heels were fully down and the boots were stable. The patient was then positioned onto the HANA table. Both legs were held in a neutral position. SCDs were applied. The patient was then slid down onto a peroneal post. Prophylactic antibiotics in the form of Cefazolin were administered. 1g of Tranxemic Acid was given intravenously within 30 minutes of incision. The left leg was then prepped with Chloraprep and draped in a standard fashion. A second prep with Chloraprep was performed prior to placement of a shower-curtain type drape with Iodine impregnated skin protection. A timeout to confirm correct identity, side and site, procedure, allergies, anesthesia, and medical concerns was performed. An obliquely oriented incision was made starting lateral to the ASIS and running distal over the Tensor Fascia Kati (TFL) muscle belly toward the fibular head, approximately 10cm. The skin and soft tissue was dissected sharply, through Joshua?s fascia, and to the fascia of the TFL. With the fascia and superior border of the IT band identified, the fascia was incised with a new knife just above any perforators from the IT band. The TFL muscle belly was bluntly dissected away from the fascia and moved laterally. The fat between TFL and rectus was identified to ensure the dissection was not within the TFL. Blunt dissection created space between abductors and the capsule and retractor was placed over the lateral femoral neck. The fibers of the rectus femoris tendon were identified and these were freed from the anterior capsule. A second cobra retractor was placed around the medial femoral neck. The TFL was further retracted laterally to show the deep fascia. Careful dissection through this layer identified three main crossing vessels of the lateral femoral circumflex. These were cauterized in multiple locations and then cut without any noticeable bleeding. The TFL was further released bluntly from the deep fascia to expose anterior hip capsule and fat The soft tissue orthopaedic retractor was then placed beneath the TFL and against sartorius and medial soft tissues to protect and retract the soft tissues. A T-capsulotomy was then performed starting at the superior lateral acetabulum and moving distally to the intertrochanteric ridge. These capsular flaps were tagged with a No. 1 Vicryl and elevated from within. The capsular flaps were released to the shoulder of the lateral neck and to the lesser trochanter to give excellent visualization of the proximal femur. A neck osteotomy was performed using an oscillating saw based on preoperative templates. This cut started in the shoulder and of the lateral neck and exited medially. The saw was at all times directed medially to avoid injury to the greater trochanter. Gross traction was applied to the leg and the osteotomy opened. The femoral head was removed with a corkscrew, making sure to protect the TFL on its exit. Traction was released after head removal. This was measured on the back table to determine the starting reamer size. Portions of the rectus obscuring visualization were minimally elevated off the superior acetabulum. An anterior retractor was placed over the anterior wall between capsule and labrum and attached to the Gripper retraction system. The femur was rotated to 90 degrees and medial capsule was fully released until the lesser trochanter was palpable and visible; the femur was returned to 30 degrees. A posterior retractor was placed similarly between capsule and labrum. This provided excellent visualization. The contents of the cotyloid fossa were removed with electrocautery and the labrum was removed with a knife. The labrum was hypertrophic and quite large but completely detached from the lateral acetabulum. There was significant chondromalacia of the superior acetabulum. Acetabular reaming began with a 46mm reamer. This first reaming was directed anterior to posterior and medial to get down to the true floor. This was inspected and reamed until the true floor was reached. The anterior retractor was then released and entry and exit was provided by traction on the capsular flaps. I then reamed sequentially up to a 52mm reamer where good fit was obtained. The larger reamers were oriented based on anatomical reference of the anterior and lateral san to ensure proper abduction and anteversion. Positioning and size was confirmed with the fluoroscopy. A 52mm Depuy [place] acetabular component was selected. The acetabulum was reamed around the periphery with the selected acetabular size to prevent a rim fit. The deep tissues were irrigated. The acetabular component was then impacted in a position of about 40-45 degrees of abduction and 15-20 degrees of anteversion, using the patient?s anatomy as the ultimate landmark. Fluoroscopy was used to confirm this. There was excellent road monkey of the acetabular component and the inserting handle was removed. The acetabular liner, Depuy [id number] polyethylene liner, was inserted and lined up with the tines of the acetabular component. There was no soft tissue interpo sition. The liner was then impacted into position and confirmed to be well- seated. A portion of the maria e-articular cocktail was then injected around the acetabulum into the capsule and periosteum. This cocktail consisted of 123mg of Ropivacaine, 0.25mg of Epinephrine, 0.04mg of Clonidine, and 15mg of Ketorolac, diluted to 50cc. The leg was rotated to 120 degrees. Any remaining medial capsule was released until the lesser trochanter was easily palpable. A retractor was placed medially. The lateral capsule was further released into the shoulder to allow access to the greater trochanter. A Perez retractor was placed over the greater trochanter which allowed the trochanter to flip in front of the capsule for excellent exposure. The leg was brought down into maximal extension and 20 degrees of adduction while ensuring there was no impingement on the acetabulum. Any remnant capsule within the trochanter was released. Piriformis and obturator externis were identified and protected. There was excellent access to the proximal femur. The lateral neck remnant was removed with a rongeur. A blunt canal probe was used to identify the canal and trajectory for later broaching. A box osteotome initiated the broach course. A small curved rasp and a curved curette were used to work laterally. Broaching then began with a starter Actis broach. This was inserted manually around the trochanter and into the canal before mallet blows. The broach was seated to a few millimeters below the cut level based on the neck cut and the preoperative template. Sequential broaching was continued with the [employer] pneumatic broaching device until a tight fit was obtained with good rotational control of the femur. A trial high offset neck was inserted along with a +1.5 trial head. The leg was brought out of extension and adduction and then reduced with traction and internal rotation. The leg was stable anteriorly in a position of 30 degrees of extension and 90 degrees of external rotation. Fluoroscopy was used to ensure there was no fracture and the stem was seated well. Leg lengths were checked with an AP pelvis and pelvic reference points. [employer] navigation system was used to confirm appropriate positioning and leg length and offset. This actually overcorrected the offset. Therefore based on the position of the stem and the results from the navigation system, I elected to advance the stem approximately 6 mm and convert to a standard neck with a +5 head. Once content with the desired offset and leg lengths, the leg was brought back into extension, external rotation and adduction. The periosteum and surrounding tissue was injected with remaining portion of the maria e-articular cocktail. The proximal femur was irrigated as well as the deep tissues. The [employer] Actis standard collared stem, size 5, was then manually inserted into the proximal femur making sure to control rotation. It was then malleted into position with light blows, giving breaks to allow bone expansion and decrease risk of fracture. The selected Depuy Altrx Ceramic Head, size 36+5mm, was then placed onto the clean and dry trunnion and secured with impaction onto the tapered fit. The leg was brought back out of extension and adduction and reduced with traction and internal rotation. Stability was confirmed with no shuck at 90 degrees of external rotation and 30 degrees of extension. No impingement through range of motion arc. Final x-ray images were obtained with fluoroscopy to confirm adequate positioning and no intraoperative fracture. The deep tissues were thoroughly irrigated with Surgiphor, betadine solution. This was allowed to sit in the wound for 3 minutes before being thoroughly irrigated out with normal saline. The capsule was then reapproximated with the previously placed sutures and the indirect head of the rectus was inspected and reapproximated with a #1 Vicryl. The TFL fascia was finally closed with a No. 2 Stratafix, barbed suture. Deep tissues were then reapproximated with 0 Vicryl and a running 2-0 Vicryl. The skin was closed with a running 4-0 Monocryl in a subcuticular fashion. This was reinforced with skin glue. A Mepilex silver dressing was applied. At the end of the case, all counts were correct. George was transferred to the hospital bed without difficulty and suffering no apparent complication. She has a good prognosis. Physical therapy will start today and without restrictions, weight-bearing as tolerated. Aspirin 81mg BID will be used for DVT prophylaxis. Date of Procedure: 08/07/24
[2024-08-07] MEDS: Tranexamic Acid 650 MG TAB 1300 MG PO (12:44)
[2024-08-07] MEDS: traMADol 50 MG TAB PO (12:47)
--- NOTE | 2024-08-07 13:00 | W.ANESPOSTOP ---
Postoperative Evaluation Date, Time and Location Date Performed: 08/07/24 Time Performed: 13:00 Patient Location: Day Surgery Unit Vital Signs Most Recent Imported Vital Signs: Most Recent Vital Signs Temp Pulse Resp BP Pulse Ox 36.1 C L 60 14 116/76 100 08/07/24 12:15 08/07/24 12:15 08/07/24 12:15 08/07/24 12:15 08/07/24 12:15 Pain Score Most Recent Pain Score: Most Recent Pain Score Pain Level 2 08/07/24 12:55 Assessment Mental Status: Awake (Alert & Oriented to Patient Baseline) Airway and Respiratory Function: Patent airway with normal (patient baseline) respiratory exam Cardiovascular Function: Hemodynamically Stable Hydration Status: Adequately Hydrated Nausea & Vomiting: No Nausea or Vomiting Pain: Pain is tolerable per patient Peripheral Nerve Block: Patient did not receive a nerve block
--- NOTE | 2024-08-07 14:21 | PT.INIE ---
PT Notes Visit Reasons: Left hip DJD Physical Therapy Day Surgery Initial Evaluation Date: 08/07/2024 Referring Doctor: Rocio Thrasher, [employer]; Dr. Saavedra PT Orders: PT CONSULT: Status post Ortho surgery Precautions: WBAT left LE Patient Profile/Admitting Diagnosis: George is a 74-year-old female presenting status post elective left BRISEIDA under spinal anesthesia postop uncomplicated PMHX: Muscle pain (Acute) Piriformis syndrome of left side (Acute) Lumbar radiculopathy (Acute) Trochanteric bursitis, left hip (Acute) PCP 40 mg Depo injection: 08/13/22 DEPO MEDROL 05/16/23Degenerative joint disease of left hip (Chronic) POCUS INJECTION 08/18/23; 03/17/23; 11/25/2022Left cervical radiculopathy (Acute) Osteoporosis of forearm without pathological fracture (Acute) Chronic insomnia (Chronic) long-term use of lorazepam.Loosening of prosthesis of right total knee replacement (Acute) Arthritis of carpometacarpal (CMC) joint of right thumb (Acute) Arthritis of carpometacarpal (CMC) joint of left thumb (Acute) Tubular adenoma of colon (Acute) Asymmetrical sensorineural hearing loss (Chronic) Right earElevated blood pressure reading (Acute) Gastroesophageal reflux disease with esophagitis (Chronic) RareIrritable colon (Acute) Intestinal dysmotility with irritable bowel syndrome Medical History Hypertension Fibrocystic disease of breast (02/10/94) Gastric ulcer (02/10/01) EGD; neg HPylori Surgical History Status post lumbar laminectomy (01/2023) L4-5 partial laminectomy and medial facetectomy.Status post laparoscopic hysterectomy Status post appendectomy History of esophagogastroduodenoscopy History of bilateral oophorectomy History of arthroscopy of knee History of carpal tunnel surgery of right wrist (03/02/17) also carpectomy right wrist History of total right knee replacement (TKR) (03/02/17) 2013 Status post total knee replacement using cement (02/14/13) Social History/Home Situation: Pt resides alone in [place] home with 2 BARRY with Left rail and FOS to bedroom and bathroom . Pt independent ADL, Ambulation, home management, yard management, meal prep, Pt is employed as a realtor. Pt drives. Equipment Owned/DME: None Issued and fitted for FWW from [facility] Subjective: Pt reports she feels good and is ready to start moving. Pt reports she is very active works out daily, enjoys hiking, biking skiing. She has a dog she walks daily on trails. Objective: [] General Observation: female semireclined on stretcher with ice to left hip,family member visiting. Mental Status: A+Ox4, cooperative, pleasant, motivated , able to follow all instructions. Agreeable to participate in PT session Pain: stinging sensation left lateral hip ROM: [] BUE: WNL Right Lower Extremity: WFL Left Lower Extremity: knee and ankle WFL; hip flexion >90, abd: 12, extension 5 degrees, IR to neutral Strength: [] BUE: grossly 5/5 Right Lower Extremity: grossly 5/5 Left Lower Extremity: Hip flexion: 3 -/5; hip abduction: 2+/5; hip extension: 3/5; knee extension: >/=TO 3/5; knee flexion: 3 -/5 ankle DF: 3/5 ; ankle PF: 3/5 Sensation: Intact Bed Mobility/Transfers: [] Supine to sit independent Sit to stand independent Stand to sit [] independent Bed to chair independent with FWW Gait: Independent with FWW reciprocal pattern ambulating 150 feet level surfaces including turns Stairs: 2 steps with bilateral rails supervision Balance: [] Static Sitting: Normal Dynamic Sitting: Good Static Standing: Good+ Dynamic Standing: Good Special Tests: [] Mobility Limitations Standardized Measure [] [facility] AM-PAC 6 clicks Basic Mobility Inpatient Short Form: [] Raw Score: 23 CMS Score: 11.20% Informed Consent/Education: Patient instructed in purpose of PT consult. Packet containing [] exercise protocol has been given to patient. Education and training on initial set of exercises that can be done at home have been completed with patient. Treatment Functional mobility with FWW various surfaces with and without arm rest. ambulation in small spaces SBA with cues for FWW mgmt. stairs with SPC and rail CGA 5 steps , SBA with 1 rail 5 steps step to pattern. with and without SPC. Assessment: Patient presents with clinical signs and symptoms consistent with current/admitting diagnoses that have resulted to mobility limitations, gait instability, generalized weakness, and impairment of motor control as demonstrated by the following impairment level findings: 1. Decreased strength to left hip major muscle groups 2. Impaired standing balance 3. Limitation of joint range of motion in left hip 4. pain in left hip 5. Impaired functional activity tolerance Impairments are contributing to the following functional limitations: 1. Inability to safely ambulate without assistive device 2. Increase completion time for mobility ADL performance 3. Increased fall risk 4. Difficulty performing stairs without assistive device or assistance Patient is assessed as a low complexity based on the following: History: 74-year-old female with impairment level findings, functional limitations, and past medical history as indicated above Examination: Demonstrable impairment in strength, balance, and mobility level with underlying impairments and functional limitations as documented above Presentation: stable Decision Making: low Goals: N/A. PT evaluation and 1-2 treatment sessions only for functional mobility training using recommended AD and for HEP instruction. Plan of Care/Treatment Plan: N/A. PT evaluation and 1-2 treatment session only for functional mobility training using recommended AD and for HEP instruction. DISCHARGE RECOMMENDATIONS: Home with HEP TREATMENT CODE/TIME: 07668, [id number]/ [id number] Thank you for the opportunity to participate in the care of this patient. Deisi Mroales PT [facility]
== END 2024-08-07 14:20 | disposition home or self-care (01) ==
LOC: SUR 07:53
PROVIDERS: PCP Family Medicine; Visit Provider Student in an Organized Health Care Education/Training Program
PROC: (CPT 27130; principal; 2024-08-07 11:15)
DX: M16.12 Unilateral primary osteoarthritis, left hip (principal)
CPT/HCPCS: 20985; 27130; 97161; 97530; 73501; C1776; J0690; J1100; J2003; J2250; J2371; J2401; J2405; J2704

== ENCOUNTER 2024-08-20 10:49 | Outpatient (CLI) | payer MEDICARE, SELFPAY ==
--- NOTE | 2024-08-20 10:00 | DI.RAD_ITS ---
Exam(s) XR HIP LT COMPLETE AP PELVIS EXAM: XR HIP LT COMPLETE AP PELVIS CLINICAL HISTORY: 1ST POST OP S/P L BRISEIDA. TECHNIQUE: 2D digital imaging was performed. COMPARISON: CR XR PELVIS AP from 01/09/2024 FINDINGS: Two views Stable position alignment of the components of the recently placed left hip prosthesis. No fracture or loosening evident. Mild degenerative changes in the opposite-right hip again noted IMPRESSION: Stable satisfactory appearance. DATA REPOSITORY: RADIATION DOSE DELIVERED:
== END 2024-08-20 10:50 | disposition home or self-care (01) ==
LOC: DIORS 10:49
PROVIDERS: PCP Family Medicine; Referring Provider Family Medicine; Visit Provider Physician Assistant
DX: Z47.1 Aftercare following joint replacement surgery (principal); Z96.642 Presence of left artificial hip joint
CPT/HCPCS: 99024; 73502

== ENCOUNTER → 2024-09-17 08:53 | Outpatient (BNVA) | payer MEDICARE, SELFPAY | PROVIDERS: PCP Family Medicine; Referring Provider Family Medicine; Visit Provider Student in an Organized Health Care Education/Training Program | DX: Z96.642 Presence of left artificial hip joint (principal); Z47.1 Aftercare following joint replacement surgery | CPT/HCPCS: 99024 ==